=== PATIENT | male | born 1965 | race Caucasian/White ===

== ENCOUNTER 2025-03-02 16:36 | Inpatient (IN) | payer MEDICARE, MEDICAID, SELFPAY ==
[2025-03-02] VITALS (42 sets, daily range): BP systolic 92–218; BP diastolic 61–124; PULSE 49–135; RESP 9–28; TEMP 36.1–36.3; O2SAT 91–100; BMI 28.2
[2025-03-02] MEDS: ETOMIDATE INJ 2 MG/ML VIAL 10 ML 20 MG IV (16:49)
[2025-03-02] MEDS: NICARDIPINE/NS 20MG IVPB 20 MG/200 ML BAG 50 MG IV (16:50)
[2025-03-02] MEDS: ROCURONIUM INJ 10 MG/ML VIAL 10 ML 50 MG IV (16:51)
[2025-03-02] MEDS: MIDAZOLAM/NS 100 MG IVPB 100 MG/100 ML BAG IV (16:55)
[2025-03-02] MEDS: fentaNYL 2,500 MCG/250 ML BAG 2,500 MCG/250 ML BAG IV (16:55)
--- NOTE | 2025-03-02 16:55 | XR_ITS ---
Examination: CTA carotids with intravenous contrast CTA brain, head with intravenous contrast. 2-D sagittal, coronal reconstructions. 3-D reconstructions. Exam date and time: March 02, 2025, 1816 hours INDICATIONS: Stroke alert, patient found down unresponsive today CTDI: vol (mGy) 40.2 DLP: (mGycm) 541 Technique: Multiple CTA axial brain, head carotid images post intravenous contrast injection 75 cc, [id number]. 2-D sagittal, coronal reconstructions. 3-D reconstructions, 3-D post processing including vascular maximum intensity projection images. Low dose protocols were performed. One or more of the following dose reduction techniques were used; automated exposure control, adjustment of the mA and/or KV according to patient size, use of iterative reconstruction technique. Findings: Enhancing posterior right thyroid lobe nodule 17 mm Tracheal tube projects above the nika No significant, carotid carotid bifurcation or internal carotid artery stenoses Dominant left vertebral artery in the neck with no critical stenoses Intracranial vertebral arteries basilar artery posterior cerebral branches fill with no large vessel occlusions Juxtasellar internal carotid arteries, M1 segments middle cerebral arteries middle cerebral artery trifurcation vessels and anterior cerebral arteries fill with no large vessel occlusions IMPRESSION: No significant neck arterial stenoses No cerebral large vessel arterial occlusions or thrombus
--- NOTE | 2025-03-02 16:55 | XR_ITS ---
Examination: CT brain head without contrast. 2-D sagittal coronal reconstructions Date and time of exam: March 02, 2025, 1814 hours INDICATIONS: Stroke alert, patient found down unresponsive today CTDI: vol (mGy): 54.6 DLP: (mGycm): 1151 Technique: Multiple CT axial sections of the brain have been obtained, 5 mm slice thickness. Contrast has not been administered. 2-D sagittal, coronal reconstructions have been obtained Low dose protocols were performed. One or more of the following dose reduction techniques were used; automated exposure control, adjustment of the mA and/or KV according to patient size, use of iterative reconstruction technique. Findings: No significant ventricular enlargement. 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 No mass effect or midline shift Basal cisterns are not remarkable. Fourth ventricle is midline. Cranial vault intact. Significant ethmoid chronic sinusitis Impression: Negative for acute hemorrhage, mass effect or midline shift
--- NOTE | 2025-03-02 16:55 | PC.NURSE ---
UNABLE TO OBTAIN NIHSS AT THIS TIME, PT INTUBATED.
--- NOTE | 2025-03-02 16:55 | EDNOTE_ITS ---
Altered Mental Status RME/HPI General Chief Complaint: Altered Mental Status Stated Complaint: AMS Time Seen by Provider: 03/02/25 16:47 Arrival date/time: 03/02/25 16:36 RME / HPI RME / HPI narrative: 59 year old male presents to the ED BIBA from home for evaluation of altered mental status. Per medics, the patient was found patient unresponsive in his trailer. Downtime unknown. Medics state on scene patient was a GCS of 3 with very shallow respirations and had an NPA placed. Medics state there was very little to no response. Blood pressure 202/129 and sinus tachycardia on telemetry. Patient bagged with BVM. Past medical history unknown. Per EMR review, in 2020 the patient reported history of CHF, hypertension, diabetes, COPD. Related Data Previous Rx's ?Medication ?Instructions ?Recorded aspirin 81 mg tablet 81 mg PO QDAY 1 month #30 ta bs 03/04/25 atorvastatin 40 mg tablet (Lipitor) 40 mg PO QDAY 1 mo nt #30 tabs 03/04/25 blood pressure monitor (Blood #1 ea 03/04/25 Pressure Kit) losartan 25 mg tablet 25 mg PO QDAY 1 month #30 ta bs 03/04/25 Allergies Allergy/AdvReac Type Severity Reaction Status Date / Time bee venom protein (honey bee) Allergy Severe Rash Verified 03/02/25 16:42 Review of Systems Review of Systems ROS Unobtainable: unobtainable due to mental status Past Medical History Past Medical History CARDIAC: Positive Cardiac Disorders, Congestive Heart Failure and Hypertension RESPIRATORY: Positive Chronic Obstructive Pulmonary Disease (COPD), Emphysema and CPAP Dependent ENDOCRINE: Positive Endocrine Disorders and Diabetes Mellitus Type 2 PSYCHO/SOCIAL: Positive Recreational Drug Use Social History SMOKING STATUS: Current every day smoker SUBSTANCE USE: marijuana (QD) ED Exam Narrative Physical exam: GEN. APPEARANCE: Patient arrived unresponsive, GCS of 3 and actively being bagged. VITALS: Hypertensive 220/124, 99% with BVM. HEENT: Normocephalic, atraumatic. Pupils are 4mm bilaterally and deviated upward, reactive to light. NECK: Supple, no JVD. CHEST: No deformity and no crepitus. CARDIOVASCULAR: Heart regular,? tachycardic, rate 109 on telemetry. LUNGS: Fair breath sounds with bagging. ABDOMEN: Soft, flat. EXTREMITIES: Flaccid. No edema. Does not move any extremities. No obvious trauma. SKIN: Warm and dry, no rashes noted. NEURO: GCS is 3. Course Course Course Narrative: 1634: Patient arrived to ED, actively being bagged, GCS of 3. 165: Patient intubated, see procedure note. Patient sedated with Etomidate and Rocuronium. Ordered Versed and Fentanyl drip. 1654: Stroke alert activated. 1730: Notified by RN the patient is not adequately sedated. The Versed and Fentanyl were discontinued and sedation switched to Propofol. I also gave a 5ml IV push of Propofol with improvement. 1800: Patient signed out to Dr. Everett pending labs, imaging, and final disposition. Quality Measures Suspected type of Stroke: Unknown at this time Tenecteplase given: Reason(s) TPA not given: Unable to determine eligibility not given stroke Orders Category Date Time Status Bedside Blood Glucose NOW Care 03/02/25 16:55 Completed Hiv Prevention Specialist NOW Care 03/02/25 16:55 Completed Continuous Pulse Oximetry NOW Care 03/02/25 16:55 Completed EKG (ED ONLY) *Do not use* NOW Care 03/02/25 16:55 Completed Emergency Titration Protocol Stat Care 03/02/25 17:48 Ordered Emergency Titration Protocol Stat Care 03/02/25 17:50 Ordered In and Out Catheter NEEDED Care 03/02/25 16:55 Completed Insert IV NOW Care 03/02/25 16:55 Completed Intubation NOW Care 03/02/25 17:39 Completed NIH Stroke Scale now Care 03/02/25 16:55 Completed NPO NOW Care 03/02/25 16:55 Completed Nurse Swallow Screen x1 Care 03/02/25 16:55 Completed Consult to Neurology / Tele-Neurology Routine Cons 03/02/25 16:[address] angio stroke protocol Stat Exams 03/02/25 16:[address] stroke protocol Stat Exams 03/02/25 16:55 Completed EKG (ED Only) Stat Exams 03/02/25 16:55 Ordered XR chest 1V post procedure Stat Exams 03/02/25 16:55 Completed Arterial Blood Gas Stat Lab 03/02/25 17:12 Completed B-Type Natriuretic Peptide Stat Lab 03/02/25 16:50 Completed CBC Stat Lab 03/02/25 16:50 Completed Comprehensive Metabolic Panel Stat Lab 03/02/25 16:50 Completed Drug Screen,Urine Stat Lab 03/02/25 18:49 Completed Magnesium Stat Lab 03/02/25 16:50 Completed Partial Thromboplastin Time Stat Lab 03/02/25 16:50 Completed Prothrombin Time with INR Stat Lab 03/02/25 16:50 Completed Troponin I Stat Lab 03/02/25 16:50 Completed Urinalysis, C/S if Indicated Stat Lab 03/02/25 18:49 Completed Etomidate Inj [Amidate Inj] Med 03/02/25 16:40 Discontinued 20 mg IV X1 ONE Midazolam Inj [Versed Inj] Med 03/02/25 17:10 Discontinued 5 mg IVP X1 ONE Midazolam/Ns 100 mg Ivpb [Versed Pf Inj in Ns Premix] Med 03/02/25 16:40 Discontinued 100 mg in 100 ml IV 1 mg/hr Nicardipine/Ns 20Mg Ivpb [Cardene Ivpb] Med 03/02/25 16:39 Discontinued 20 mg in 200 ml IV 5 mg/hr Propofol 1,000 mg Ivpb [Diprivan Ivpb] Med 03/02/25 17:25 Discontinued 1,000 mg in 100 ml IV 5 mcg/kg/min Rocuronium Inj [Zemuron Inj] Med 03/02/25 16:40 Discontinued 50 mg IV X1 ONE Sodium Chloride 0.9% 1000 ml [Ns] 1,000 ml Med 03/02/25 17:45 Discontinued IV 999 mls/hr fentaNYL 2,500 MCG/250 ML BAG [Sublimaze Inj 2,500 MCG/ Med 03/02/25 16:41 Discontinued 250 ML BAG] 2,500 mcg in 250 ml IV 25 mcg/hr Oxygen Delivery NOW RT 03/02/25 16:55 Completed Vital Signs Vital signs: Vital Signs Pulse Rate 106 H 03/02/25 16:40 Respiratory Rate 17 03/02/25 16:40 Blood Pressure 218/124 H 03/02/25 16:40 Pulse Oximetry (%) 98 03/02/25 16:40 Oxygen Delivery Method Ambu-Bag 03/02/25 16:40 PROCEDURES: Intubation Time out performed: Yes sedative: Etomidate Mg Given: 20 paralytic: Rocuronium Mg Given: 50 Laryngoscope: Haider ET Tube Size: 7.5 ET Tube Uncuffed: No Tube Secured Depth (cm): 26 Tube Secured Location: teeth Tube Placement Confirmation: visualized tube passing through cords, equal breath sounds bilaterally, no breath sounds over epigastrium and confirmation by capnometry Patient Tolerated Procedure: well and no complications Intubation Complications: none Altered Mental Status MDM Narrative [facility] Narrative:: Tere Hui am scribing for and in the presence of Dr. Mcdaniel. Patient data External records reviewed:: [facility] previous records and EMS form Clinical information provided by:: EMS Social determinants that could affect healthcare access:: none Patient has the following chronic illnesses:: Per EMR review, in 2020 the patient reported history of CHF, hypertension, diabetes, COPD. How is presenting disease/condition affected by chronic disease/condition?: exacerbated by Evaluation data The following diagnostics were reviewed and interpreted by me:: lab results, radiology exam(s) and EKG tracing(s) Lab and/or radiology exams considered but not ordered:: None Interpretation Summary: Ordering Physician: Rachel Mcdaniel MD Date of Service: 03/02/25 Procedure(s): XR chest 1V post procedure Accession Number(s): [id number] cc: José Miguel Tolliver MD; Rachel Mcdaniel MD~ EXAMINATION: AP chest single view TECHNIQUE: AP portable supine chest single view INDICATIONS: Hypoxic respiratory failure post intubation today, stroke alert FINDINGS: Endotracheal tube tip 6.6 cm above nika Normal heart size Mild vascular congestion. No aspiration pneumonia Orogastric tube sidehole is at the GE junction IMPRESSION: Advance the orogastric tube 4 cm Dictated By: José Miguel Tolliver MD Signed By: <Electronically signed by José Miguel Tolliver MD in OV> 03/02/25 8994 Medications / Prescriptions Medications or Prescriptions considered but not ordered:: None Medication administrations:: Medication Administration History Discontinued Medications Acetaminophen (Acetaminophen 325 Mg Tablet) 1,000 mg NG Q6H PRN PRN Reason: Fever >101.5 Stop: 04/01/25 21:02 Acetaminophen (Acetaminophen 325 Mg Tablet) 1,000 mg NG Q6H PRN PRN Reason: fever >99.9 Stop: 04/01/25 21:02 Aspirin (Aspirin 81 Mg Chew) 81 mg PO QDAY [facility] Stop: 04/02/25 09:44 Last Admin: 03/04/25 09:17 Dose: 81 mg Documented By: Admin: 03/03/25 10:39 Dose: 81 mg Documented By: FREDERICK Atorvastatin Calcium (Atorvastatin Calcium 20 Mg Tablet) 40 mg PO HS GARCIA Stop: 04/02/25 20:59 Last Admin: 03/03/25 20:04 Dose: 40 mg Documented By: SANDRA Calcium Gluconate (Calcium Gluconate 10% Inj 1 Gm/10 Ml Vial) 1 gm IV X1 ONE Stop: 03/02/25 22:16 Last Admin: 03/02/25 22:57 Dose: 1 gm Documented By: EMILY Enoxaparin Sodium (Enoxaparin Sod Inj 40 Mg/0.4 Ml Syringe) 40 mg SC QPM GARCIA Stop: 03/17/25 20:59 Last Admin: 03/03/25 20:04 Dose: 40 mg Documented By: SANDRA Etomidate (Etomidate Inj 2 Mg/Ml Vial 10 Ml) 20 mg IV X1 ONE Stop: 03/02/25 16:41 Last Admin: 03/02/25 16:49 Dose: 20 mg Documented By: ALCIRA Famotidine (Famotidine Inj 10 Mg/Ml Vial 2 Ml) 20 mg IVP Q12HR GARCIA Stop: 04/02/25 08:59 Last Admin: 03/04/25 09:17 Dose: 20 mg Documented By: Admin: 03/03/25 20:04 Dose: 20 mg Documented By: Admin: 03/03/25 09:25 Dose: 20 mg Documented By: FREDERICK Hydralazine HCl (Hydralazine Inj 20 Mg/Ml Vial) 5 mg IVP X1 ONE Stop: 03/03/25 16:59 Last Admin: 03/03/25 17:06 Dose: 5 mg Documented By: FREDERICK Hydralazine HCl (Hydralazine Inj 20 Mg/Ml Vial) 10 mg IVP Q4HR PRN PRN Reason: SBP >180 Stop: 04/02/25 18:04 Nicardipine/Sodium Chloride (Cardene Ivpb) 20 mg in 200 mls @ 50 mls/hr IV .Q4H PRN; Protocol PRN Reason: Per Protocol Stop: 04/01/25 16:38 Last Titration: 03/02/25 17:45 Dose: 0 mg/hr, 0 mls/hr Documented By: Titration: 03/02/25 17:30 Dose: 3 mg/hr, 30 mls/hr Documented By: Titration: 03/02/25 17:25 Dose: 3 mg/hr, 30 mls/hr Documented By: Titration: 03/02/25 17:20 Dose: 15 mg/hr, 150 mls/hr Documented By: Titration: 03/02/25 17:15 Dose: 12.5 mg/hr, 125 mls/hr Documented By: Titration: 03/02/25 17:10 Dose: 10 mg/hr, 100 mls/hr Documented By: Titration: 03/02/25 17:05 Dose: 7.5 mg/hr, 75 mls/hr Documented By: Admin: 03/02/25 16:50 Dose: 5 mg/hr, 50 mls/hr Documented By: VG Midazolam HCl (Versed Pf Inj In Ns Premix) 100 mg in 100 mls @ 1 mls/hr IV .Q24H PRN; Protocol PRN Reason: PER PROTOCOL Stop: 03/07/25 16:39 Last Titration: 03/02/25 17:40 Dose: 0 mg/hr, 0 mls/hr Documented By: Admin: 03/02/25 16:55 Dose: 1 mg/hr, 1 mls/hr Documented By: VG Co-signed By: ARASH Fentanyl Citrate (Sublimaze Inj 2,500 Mcg/250 Ml Bag) 2,500 mcg in 250 mls @ 2.5 mls/hr IV .Q24H PRN; Protocol PRN Reason: PER PROTOCOL Stop: 03/07/25 16:40 Last Titration: 03/02/25 20:15 Dose: 125 mcg/hr, 12.5 mls/hr Documented By: [email or web address] Titration: 03/02/25 20:00 Dose: 125 mcg/hr, 12.5 mls/hr Documented By: [email or web address] Titration: 03/02/25 19:45 Dose: 125 mcg/hr, 12.5 mls/hr Documented By: [email or web address] Titration: 03/02/25 19:30 Dose: 125 mcg/hr, 12.5 mls/hr Documented By: [email or web address] Titration: 03/02/25 19:05 Dose: 125 mcg/hr, 12.5 mls/hr Documented By: Titration: 03/02/25 18:35 Dose: 75 mcg/hr, 7.5 mls/hr Documented By: Titration: 03/02/25 17:45 Dose: 125 mcg/hr, 12.5 mls/hr Documented By: Titration: 03/02/25 17:25 Dose: 75 mcg/hr, 7.5 mls/hr Documented By: Admin: 03/02/25 16:55 Dose: 25 mcg/hr, 2.5 mls/hr Documented By: VG Co-signed By: ARASH Propofol (Diprivan Ivpb) 1,000 mg in 100 mls @ 2.835 mls/hr IV .Q24H PRN; Protocol PRN Reason: PER PROTOCOL Stop: 04/01/25 17:24 Last Titration: 03/02/25 20:15 Dose: 35 mcg/kg/min, 19.845 mls/hr Documented By: [email or web address] Titration: 03/02/25 20:00 Dose: 35 mcg/kg/min, 19.845 mls/hr Documented By: [email or web address] Titration: 03/02/25 19:45 Dose: 35 mcg/kg/min, 19.845 mls/hr Documented By: [email or web address] Titration: 03/02/25 19:30 Dose: 35 mcg/kg/min, 19.845 mls/hr Documented By: [email or web address] Titration: 03/02/25 19:15 Dose: 35 mcg/kg/min, 19.845 mls/hr Documented By: Titration: 03/02/25 19:00 Dose: 40 mcg/kg/min, 22.68 mls/hr Documented By: Titration: 03/02/25 18:25 Dose: 35 mcg/kg/min, 19.845 mls/hr Documented By: Titration: 03/02/25 18:00 Dose: 40 mcg/kg/min, 22.68 mls/hr Documented By: Titration: 03/02/25 17:55 Dose: 35 mcg/kg/min, 19.845 mls/hr Documented By: Titration: 03/02/25 17:51 Dose: 30 mcg/kg/min, 17.01 mls/hr Documented By: Titration: 03/02/25 17:50 Dose: 25 mcg/kg/min, 14.175 mls/hr Documented By: Titration: 03/02/25 17:45 Dose: 15 mcg/kg/min, 8.505 mls/hr Documented By: Titration: 03/02/25 17:40 Dose: 10 mcg/kg/min, 5.67 mls/hr Documented By: Admin: 03/02/25 17:35 Dose: 5 mcg/kg/min, 2.835 mls/hr Documented By: VG Co-signed By: ADRIAN Sodium Chloride (Ns) 1,000 mls @ 999 mls/hr IV .Q1H1M ONE Stop: 03/02/25 18:45 Last Infusion: 03/02/25 18:45 Dose: Infused Documented By: Admin: 03/02/25 17:45 Dose: 999 mls/hr Documented By: VG Propofol (Diprivan Ivpb) 1,000 mg in 100 mls @ 2.835 mls/hr IV .Q24H PRN; Protocol PRN Reason: PER PROTOCOL Stop: 04/01/25 17:24 Last Titration: 03/03/25 11:14 Dose: 0 mcg/kg/min, 0 mls/hr Documented By: Titration: 03/03/25 11:00 Dose: 5 mcg/kg/min, 2.835 mls/hr Documented By: Titration: 03/03/25 10:57 Dose: 5 mcg/kg/min, 2.835 mls/hr Documented By: Titration: 03/03/25 10:47 Dose: 10 mcg/kg/min, 5.67 mls/hr Documented By: Titration: 03/03/25 10:12 Dose: 15 mcg/kg/min, 8.505 mls/hr Documented By: Titration: 03/03/25 10:00 Dose: 20 mcg/kg/min, 11.34 mls/hr Documented By: Titration: 03/03/25 09:36 Dose: 20 mcg/kg/min, 11.34 mls/hr Documented By: Titration: 03/03/25 09:00 Dose: 25 mcg/kg/min, 14.175 mls/hr Documented By: Titration: 03/03/25 08:00 Dose: 25 mcg/kg/min, 14.175 mls/hr Documented By: Titration: 03/03/25 07:00 Dose: 25 mcg/kg/min, 14.175 mls/hr Documented By: Titration: 03/03/25 06:40 Dose: 25 mcg/kg/min, 14.175 mls/hr Documented By: Admin: 03/03/25 06:03 Dose: 20 mcg/kg/min, 11.34 mls/hr Documented By: BB Co-signed By: AD Titration: 03/03/25 06:03 Dose: Infused Documented By: BB Co-signed By: AD Titration: 03/03/25 05:00 Dose: 20 mcg/kg/min, 11.34 mls/hr Documented By: BB Co-signed By: AD Titration: 03/03/25 04:00 Dose: 20 mcg/kg/min, 11.34 mls/hr Documented By: BB Co-signed By: AD Titration: 03/03/25 03:00 Dose: 20 mcg/kg/min, 11.34 mls/hr Documented By: BB Co-signed By: AD Titration: 03/03/25 02:00 Dose: 20 mcg/kg/min, 11.34 mls/hr Documented By: Titration: 03/03/25 01:00 Dose: 20 mcg/kg/min, 11.34 mls/hr Documented By: Titration: 03/03/25 00:30 Dose: 20 mcg/kg/min, 11.34 mls/hr Documented By: Titration: 03/03/25 00:00 Dose: 25 mcg/kg/min, 14.175 mls/hr Documented By: Titration: 03/02/25 23:00 Dose: 25 mcg/kg/min, 14.175 mls/hr Documented By: Titration: 03/02/25 22:00 Dose: 25 mcg/kg/min, 14.175 mls/hr Documented By: Admin: 03/02/25 21:20 Dose: 30 mcg/kg/min, 17.01 mls/hr Documented By: GALA Fentanyl Citrate (Sublimaze Inj 2,500 Mcg/250 Ml Bag) 2,500 mcg in 250 mls @ 2. 5 mls/hr IV .Q24H PRN; Protocol PRN Reason: PER PROTOCOL Stop: 03/07/25 16:40 Last Titration: 03/03/25 11:17 Dose: 0 mcg/hr, 0 mls/hr Documented By: Titration: 03/03/25 11:00 Dose: 25 mcg/hr, 2.5 mls/hr Documented By: Titration: 03/03/25 10:47 Dose: 25 mcg/hr, 2.5 mls/hr Documented By: Titration: 03/03/25 10:12 Dose: 75 mcg/hr, 7.5 mls/hr Documented By: Titration: 03/03/25 10:00 Dose: 125 mcg/hr, 12.5 mls/hr Documented By: Titration: 03/03/25 09:33 Dose: 125 mcg/hr, 12.5 mls/hr Documented By: Titration: 03/03/25 09:00 Dose: 175 mcg/hr, 17.5 mls/hr Documented By: Titration: 03/03/25 08:00 Dose: 175 mcg/hr, 17.5 mls/hr Documented By: Titration: 03/03/25 07:00 Dose: 175 mcg/hr, 17.5 mls/hr Documented By: Titration: 03/03/25 06:40 Dose: 175 mcg/hr, 17.5 mls/hr Documented By: Titration: 03/03/25 02:17 Dose: 125 mcg/hr, 12.5 mls/hr Documented By: Titration: 03/03/25 02:00 Dose: 75 mcg/hr, 7.5 mls/hr Documented By: Titration: 03/03/25 01:00 Dose: 75 mcg/hr, 7.5 mls/hr Documented By: Titration: 03/03/25 00:30 Dose: 75 mcg/hr, 7.5 mls/hr Documented By: Titration: 03/03/25 00:00 Dose: 125 mcg/hr, 12.5 mls/hr Documented By: Titration: 03/02/25 23:00 Dose: 125 mcg/hr, 12.5 mls/hr Documented By: Titration: 03/02/25 22:00 Dose: 125 mcg/hr, 12.5 mls/hr Documented By: Titration: 03/02/25 21:50 Dose: 125 mcg/hr, 12.5 mls/hr Documented By: Admin: 03/02/25 21:20 Dose: 75 mcg/hr, 7.5 mls/hr Documented By: GALA Co-signed By: RICHY Sodium Chloride (Ns) 500 mls @ 999 mls/hr IV .Q31M ONE Stop: 03/02/25 22:49 Last Admin: 03/02/25 22:56 Dose: 999 mls/hr Documented By: EMILY Magnesium Sulfate (Magnesium Sulfate Ivpb) 4 gm in 50 mls @ 12.5 mls/hr IV X1 ONE Stop: 03/03/25 12:43 Last Admin: 03/03/25 09:25 Dose: 12.5 mls/hr Documented By: FREDERICK Ketoconazole (Ketoconazole Cr 2% 15 Gm Tube) 0 gm TOP BID GARCIA Stop: 04/02/25 14:44 Last Admin: 03/04/25 09:17 Dose: 15 gram Documented By: Admin: 03/03/25 20:07 Dose: 15 gram Documented By: Admin: 03/03/25 15:51 Dose: 15 gram Documented By: FREDERICK Lactulose (Lactulose Syrup 20 Gm/30 Ml Udc) 20 gm NG X1 ONE; Protocol Stop: 03/02/25 22:18 Last Admin: 03/02/25 22:57 Dose: 20 gm Documented By: EMILY Lisinopril (Lisinopril 2.5 Mg Tablet) 5 mg PO QDAY [facility] Stop: 04/03/25 11:59 Last Admin: 03/04/25 12:33 Dose: 5 mg Documented By: NILSA Midazolam HCl (Midazolam Inj 1 Mg/Ml Vial 2 Ml) 5 mg IVP X1 ONE Stop: 03/02/25 17:11 Last Admin: 03/02/25 17:15 Dose: 5 mg Documented By: ALCIRA Midazolam HCl (Midazolam Inj 1 Mg/Ml Vial 2 Ml) 2 mg IVP X1 ONE Stop: 03/03/25 06:57 Last Admin: 03/03/25 07:10 Dose: 2 mg Documented By: FREDERICK Midazolam HCl (Midazolam Inj 1 Mg/Ml Vial 2 Ml) 2 mg IVP X1 PRN PRN Reason: FOr MRI if agitated Stop: 03/08/25 16:57 Nicotine (Nicotine Patch 21 Mg/24 Hr Patch.Td24) 21 mg TOP QDAY GARCIA Stop: 04/03/25 08:59 Last Admin: 03/04/25 09:17 Dose: 21 mg Documented By: NILSA Ondansetron HCl (Ondansetron Inj 2 Mg/Ml Inj 2 Ml) 4 mg IVP Q6H PRN; Protocol PRN Reason: NAUSEA OR VOMITING Stop: 04/01/25 21:02 Rocuronium [place] (Rocuronium Inj 10 Mg/Ml Vial 10 Ml) 50 mg IV X1 ONE Stop: 03/02/25 16:41 Last Admin: 03/02/25 16:51 Dose: 50 mg Documented By: ALCIRA Co-signed By: TM See above Consultations Consultation(s) initiated? (list below): No Diagnosis Most likely diagnosis given after review of the tests above:: Respiratory failure Altered mental status Admission Indicated Admission indicated?: not indicated Explain why admission is indicated or not indicated:: Patient signed out to Dr. Everett pending labs, imaging, and final disposition. Admission Request Was there a request for admission?: No Disposition Plan Disposition Plan: other (specify) (Signed out pending final disposition ) Discharge Plan Plan Patient Disposition: Admit Acute Care w/in Hospital Patient condition on transfer: Stable Problem List Clinical Impression: Altered mental status
[2025-03-02 17:10] LABS: Basophils # (Auto) 0.1 Thou/mm3 (0.0-0.2); Basophils % (Auto) 1 % (0-2.5); Eosinophils # (Auto) 0.1 Thou/mm3 (0.0-0.5); Eosinophils % (Auto) 1 % (0-10); Hematocrit 53.2 % (41.0-53.0); Hemoglobin 18.7 g/dL (13.5-16.0); Immature Granulocytes Auto 0.05 Thou/mm3 (0.00-0.00); Lymphocytes # (Auto) 3.6 Thou/mm3 (1.0-4.8); Lymphocytes % (Auto) 24 % (10-50); Mean Corpuscular HGB Conc 35.2 g/dl (31.0-37.0); Mean Corpuscular Hemoglobin 31.3 pg (25.0-35.0); Mean Corpuscular Volume 89 fL (80-100); Monocytes # (Auto) 1.0 Thou/mm3 (0.0-0.8); Monocytes % (Auto) 7 % (0-12); Neutrophils # (Auto) 9.9 Thou/mm3 (1.8-7.7); Neutrophils % (Auto) 68 % (37-80); Nucleated Red Blood Cell # 0.00 Thou/mm3 (0.00-0.00); Nucleated Red Blood Cell % 0 /100 WBC (0); Platelet Count 360 Thou/mm3 (140-440); RDW Standard Deviation 41.4 fL (35.1-43.9); Red Blood Count 5.98 Miln/mm3 (4.50-5.90); White Blood Count 14.6 Thou/mm3 (3.8-10.6)
[2025-03-02 17:15] LABS: Base Excess -2 (-3-3); HCO3 27 mEq/L (20-26); Inspired Oxygen, FIO2 21 %; O2 Saturation 100 % (91-98); PCO2 57 mmHg (32.0-48.0); PO2 418 mmHg (83-108); pH, Arterial 7.28 (7.35-7.45)
[2025-03-02] MEDS: MIDAZOLAM INJ 1 MG/ML VIAL 2 ML 5 MG IVP (17:15)
[2025-03-02 17:27] LABS: INR 1.1 (0.9-1.3); Partial Thromboplastin Time 29.1 Seconds (22.0-36.0); Prothrombin Time 11.2 Seconds (9.0-12.2)
[2025-03-02] MEDS: PROPOFOL 1,000 MG IVPB 1,000 MG/100 ML VIAL 2.835 MG IV (17:35)
[2025-03-02 17:39] LABS: Alanine Aminotransferase 11 U/L (10-49); Albumin, Serum 5.3 gm/dL (3.5-5.0); Albumin/Globulin Ratio 2.1 (1.2-2.2); Alkaline Phosphatase 112 U/L (46-116); Anion Gap 11 (7-16); Aspartate Amino Transferase 19 U/L (0-34); BUN/Creatinine Ratio 11 Ratio (12-20); Bilirubin,Total 0.7 mg/dL (0.3-1.2); Blood Urea Nitrogen 12 mg/dL (9-23); Calcium 9.8 mg/dL (8.3-10.6); Calcium (Corrected) 9.8 mg/dL (8.5-10.1); Carbon Dioxide 24.1 mMol/L (20.0-31.0); Chloride 107 mMol/L (98-107); Creatinine (Component) 1.1 mg/dL (0.6-1.3); Estimated Creatinine Clearance 88.4 mL/min (>60); Globulin 2.5 gm/dL (2.3-3.5); Glucose 126 mg/dL (74-106); Magnesium 1.8 mg/dL (1.6-2.6); Osmolality,Calculated 284 (275-295); Potassium 4.3 mMol/L (3.4-5.1); Sodium 142 mMol/L (136-145); Total Protein 7.8 gm/dL (5.7-8.2); Troponin I < 0.020 ng/mL (0.0-0.045); eGFR > 60 See Note
[2025-03-02] MEDS: SODIUM CHLORIDE 0.9% 1000 ML 1,000 ML 999 ML IV (17:45)
--- NOTE | 2025-03-02 17:45 | PC.NURSE ---
BP GETTING SOFT, BP AT 126/77. PROVIDER NOTIFIED. PER DR. ALEXANDRE DISCONTINUE NICARDIPINE AND GIVE 1L NS BOLUS. ORDERS RECEIVED AND INITIATED.
[2025-03-02 17:58] LABS: B-Type Natriuretic Peptide 25 pg/mL (0-100)
--- NOTE | 2025-03-02 18:02 | PC.NURSE ---
PT TAKEN TO CT.
--- NOTE | 2025-03-02 18:17 | PD.TNEURO ---
Tele Neuro Consultation Consultation Date 03/02/25 Most Recent Vital Signs Last Vital Signs Pulse 135 H 03/02/25 17:10 Resp 17 03/02/25 16:40 BP 200/118 H 03/02/25 17:10 Pulse Ox 97 03/02/25 17:10 O2 Del Method Ambu-Bag 03/02/25 16:40 FiO2 100 03/02/25 17:10 Laboratory-Coagulation Panel PT 11.2 Seconds (9.0-12.2) 03/02/25 16:50 INR 1.1 (0.9-1.3) 03/02/25 16:50 APTT 29.1 Seconds (22.0-36.0) 03/02/25 16:50 Consultation Narrative [facility] Tele[facility]urology Consult Services Patient Name:???Alonzo Olmstead Date of :???1965 Identification Number:??? Date of Service:???03/02/2025 16:55:46 Diagnosis:?G93.49 - Encephalopathy Multifactorial Impression: ?Patient is a 59 year old man, BIBEMS after being found down and unresponsive, unknown LKN, unknown down time. After arrival to the ED patient was unresponsive, not following commands, was hypertensive and was intubated prior to my assessment for airway protection. Unknown medical history and unknown medications. ? ?Not a candidate for IV thrombolytics as no reported LKN within past 4.5 hrs. ? 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 ? ? Our recommendations are outlined below. Recommendations: ? Stroke/Telemetry Floor ? Neuro Checks (Q1) ? Bedside Swallow Eval ? DVT Prophylaxis ? IV Fluids, Normal Saline ? Head of Bed 30 Degrees ? Euglycemia and Avoid Hyperthermia (PRN Acetaminophen) ? Initiate or continue Aspirin 325 MG daily ? Antihypertensives PRN if Blood pressure is greater than 220/120 or there is a concern for End organ damage/contraindications for permissive HTN. If blood pressure is greater than 220/120 give labetalol PO or IV or Vasotec IV with a goal of 15% reduction in BP during the first 24 hours. ?CTA head and neck pending ?MRI head without contrast Sign Out: ? Discussed with Emergency Department Provider Advanced Imaging:Advanced imaging has been ordered. Results pending. Metrics: Last Known Well: Unknown Dispatch Time: 03/02/2025 16:55:46 Arrival Time: 03/02/2025 16:36:00 Initial Response Time: 03/02/2025 16:57:01Symptoms: unresponsiveness. Initial patient interaction: 03/02/2025 16:57:21 NIHSS Assessment Completed: 03/02/2025 17:26:56Patient is not a candidate for Thrombolytic. Thrombolytic Medical Decision: 03/02/2025 17:27:00Patient was not deemed candidate for Thrombolytic because of following reasons: LKW outside 4.[address] Head: I personally reviewed all the CT images that were available to me and it showed: no acute hemorrhage Primary Provider Notified of Diagnostic Impression and Management Plan on: 03/02/2025 18:16:40 History of Present Illness:Patient is a 59 year old Male. Patient was brought by EMS for symptoms of unresponsiveness. Patient is a 59 year old man, BIBEMS after being found down and unresponsive, unknown LKN, unknown down time. After arrival to the ED patient was unresponsive, not following commands, was hypertensive and was intubated prior to my assessment for airway protection. Unknown medical history and unknown medications. ? Medications: Anticoagulant use:??Unknown Antiplatelet use:?Unknown Reviewed EMR for current medications Allergies:? Allergies Unable To Obtain Due To:?Patient Is Obtunded/ Comatose Social History: Unable To Obtain Due To Patient Status :?Patient Is Obtunded/ Comatose Family History: Family History Cannot Be Obtained Because:Patient Is Obtunded/ Comatose ROS :?ROS Cannot Be Obtained Because:? Patient Is Obtunded/ Comatose Past Surgical History: Past Surgical History Cannot Be Obtained Because: Patient Is Obtunded/ Comatose There Is No Surgical History Contributory To Today?s Visit NIHSS may not be reliable due to: Patient was intubated and paralyzed Examination: BP(235/146),?Pulse(116),?Blood Glucose(145) 1A: Level of Consciousness - Postures or Unresponsive?+ 3 1B: Ask Month and Age - Aphasic?+ 2 1C: Blink Eyes & Squeeze Hands - Performs 0 Tasks?+ 2 2: Test Horizontal Extraocular Movements - Normal?+ 0 3: Test Visual Salas - No Visual Loss?+ 0 4: Test Facial Palsy (Use Grimace if Obtunded) - Normal symmetry?+ 0 5A: Test Left Arm Motor Drift - No Effort Against [place]?+ 3 5B: Test Right Arm Motor Drift - No Effort Against [place]?+ 3 6A: Test Left Leg Motor Drift - No Movement?+ 4 6B: Test Right Leg Motor Drift - No Movement?+ 4 7: Test Limb Ataxia (FNF/Heel-Pollock) - No Ataxia?+ 0 8: Test Sensation - Normal; No sensory loss?+ 0 9: Test Language/Aphasia - Coma/Unresponsive?+ 3 10: Test Dysarthria - Intubated/Unable to Test?+ 0 11: Test Extinction/Inattention - No abnormality?+ 0 NIHSS Score:?24 NIHSS Free Text :?non purposeful irregular twitching of arms Pre-Morbid Modified Shelby Scale: Unable to assess Spoke with :?Dr Everett This consult was conducted in real time using interactive audio and video technology. Patient was informed of the technology being used for this visit and agreed to proceed. Patient located in hospital and provider located at home/office setting. Patient is being evaluated for possible acute neurologic impairment and high probability of imminent or life-threatening deterioration. I spent total of 30 minutes providing care to this patient, including time for face to face visit via telemedicine, review of medical records, imaging studies and discussion of findings with providers, the patient and/or family. Dr Brian Tucker [facility] For Inpatient follow-up with [facility] physician please call [facility] at . As we are not an outpatient service for any post hospital discharge needs please contact the hospital for assistance. If you have any questions for the [facility] physicians or need to reconsult for clinical or diagnostic changes please contact us via [facility] at . Non-radiologist review of imaging performed to assist with emergent clinical decision-making. Remote physician workstations do not possess the same resolution, calibration, or diagnostic capabilities as hospital-based radiology reading stations, and formal radiologist read is necessary. Signature :?Brian Tucker ?
--- NOTE | 2025-03-02 18:20 | EDNOTE_ITS ---
Emergency Room Addendum <Nikki Ch - Last Filed: 03/02/25 18:54> Addendum Narrative: 1800: Care assumed from Dr. Mcdaniel, the previous shift emergency physician. Past medical, surgical, social and family history reviewed. Vitals and home medications reviewed. Results and treatment plan discussed. I will assume the care of the patient at this time and will follow the patient, pending work-up. Please refer to the emergency department record for history and examination from initial visit. RADIOLOGY RESULTS: [facility] Report Signed Patient: FARHAN FOSTER. Record#: [id number] Birthdate: 1965 Age/Sex: 59 / M Location: [facility] Attending Dr: Ordering Physician: Rachel Mcdaniel MD Date of Service: 03/02/25 Procedure(s): CT stroke protocol Accession Number(s): [id number] cc: José Miguel Tolliver MD; NO PRIMARY/FAMILY,PHYSICIAN; Rachel Mcdaniel MD~ Examination: CT brain head without contrast. 2-D sagittal coronal reconstructions Date and time of exam: March 02, 2025, 1814 hours INDICATIONS: Stroke alert, patient found down unresponsive today CTDI: vol (mGy): 54.6 DLP: (mGycm): 1151 Technique: Multiple CT axial sections of the brain have been obtained, 5 mm slice thickness. Contrast has not been administered. 2-D sagittal, coronal reconstructions have been obtained Low dose protocols were performed. One or more of the following dose reduction techniques were used; automated exposure control, adjustment of the mA and/or KV according to patient size, use of iterative reconstruction technique. Findings: No significant ventricular enlargement. 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 No mass effect or midline shift Basal cisterns are not remarkable. Fourth ventricle is midline. Cranial vault intact. Significant ethmoid chronic sinusitis Impression: Negative for acute hemorrhage, mass effect or midline shift Dictated By: José Miguel Tolliver MD Signed By: <Electronically signed by José Miguel Tolliver MD in OV> 03/02/25 1823 [facility] Report Signed Patient: FARHAN FOSTER. Record#: [id number] Birthdate: 1965 Age/Sex: 59 / M Location: [facility] Attending Dr: Ordering Physician: Rachel Mcdaniel MD Date of Service: 03/02/25 Procedure(s): CT angio stroke protocol Accession Number(s): [id number] cc: José Miguel Tolliver MD; NO PRIMARY/FAMILY,PHYSICIAN; Rachel Mcdaniel MD~ Examination: CTA carotids with intravenous contrast CTA brain, head with intravenous contrast. 2-D sagittal, coronal reconstructions. 3-D reconstructions. Exam date and time: March 02, 2025, 181 hours INDICATIONS: Stroke alert, patient found down unresponsive today CTDI: vol (mGy) 40.2 DLP: (mGycm) 541 Technique: Multiple CTA axial brain, head carotid images post intravenous contrast injection 75 cc, Isovue-370. 2-D sagittal, coronal reconstructions. 3-D reconstructions, 3-D post processing including vascular maximum intensity projection images. Low dose protocols were performed. One or more of the following dose reduction techniques were used; automated exposure control, adjustment of the mA and/or KV according to patient size, use of iterative reconstruction technique. Findings: Enhancing posterior right thyroid lobe nodule 17 mm Tracheal tube projects above the nika No significant, carotid carotid bifurcation or internal carotid artery stenoses Dominant left vertebral artery in the neck with no critical stenoses Intracranial vertebral arteries basilar artery posterior cerebral branches fill with no large vessel occlusions Juxtasellar internal carotid arteries, M1 segments middle cerebral arteries middle cerebral artery trifurcation vessels and anterior cerebral arteries fill with no large vessel occlusions IMPRESSION: No significant neck arterial stenoses No cerebral large vessel arterial occlusions or thrombus Dictated By: José Miguel Tolliver MD Signed By: <Electronically signed by José Miguel Tolliver MD in OV> 03/02/25 1844 <Alejandro Everett, DO - Last Filed: 03/02/25 19:52> Addendum Narrative: 1800: Care assumed from Dr. Mcdaniel, the previous shift emergency physician. Past medical, surgical, social and family history reviewed. Vitals and home medications reviewed. Results and treatment plan discussed. I will assume the care of the patient at this time and will follow the patient, pending work-up. Please refer to the emergency department record for history and examination from initial visit. RADIOLOGY RESULTS: [facility] Signed Patient: FARHAN FOSTER. Record#: [id number] Birthdate: 1965 Age/Sex: 59 / M Location: [facility] Attending Dr: Ordering Physician: Rachel Mcdaniel MD Date of Service: 03/02/25 Procedure(s): CT stroke protocol Accession Number(s): [id number] cc: José Miguel Tolliver MD; NO PRIMARY/FAMILY,PHYSICIAN; Rachel Mcdaniel MD~ Examination: CT brain head without contrast. 2-D sagittal coronal reconstructions Date and time of exam: March 02, 2025, 1814 hours INDICATIONS: Stroke alert, patient found down unresponsive today CTDI: vol (mGy): 54.6 DLP: (mGycm): 1151 Technique: Multiple CT axial sections of the brain have been obtained, 5 mm slice thickness. Contrast has not been administered. 2-D sagittal, coronal reconstructions have been obtained Low dose protocols were performed. One or more of the following dose reduction techniques were used; automated exposure control, adjustment of the mA and/or KV according to patient size, use of iterative reconstruction technique. Findings: No significant ventricular enlargement. 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 No mass effect or midline shift Basal cisterns are not remarkable. Fourth ventricle is midline. Cranial vault intact. Significant ethmoid chronic sinusitis Impression: Negative for acute hemorrhage, mass effect or midline shift Dictated By: José Miguel Tolliver MD Signed By: <Electronically signed by José Miguel Tolliver MD in OV> 03/02/25 1823 [facility] Report Signed Patient: FARHAN FOSTER. Record#: [id number] Birthdate: 1965 Age/Sex: 59 / M Location: [facility] Attending Dr: Ordering Physician: Rachel Mcdaniel MD Date of Service: 03/02/25 Procedure(s): CT angio stroke protocol Accession Number(s): [id number] cc: José Miguel Tolliver MD; NO PRIMARY/FAMILY,PHYSICIAN; Rachel Mcdaniel MD~ Examination: CTA carotids with intravenous contrast CTA brain, head with intravenous contrast. 2-D sagittal, coronal reconstructions. 3-D reconstructions. Exam date and time: March 02, 2025, 181 hours INDICATIONS: Stroke alert, patient found down unresponsive today CTDI: vol (mGy) 40.2 DLP: (mGycm) 541 Technique: Multiple CTA axial brain, head carotid images post intravenous contrast injection 75 cc, Isovue-370. 2-D sagittal, coronal reconstructions. 3-D reconstructions, 3-D post processing including vascular maximum intensity projection images. Low dose protocols were performed. One or more of the following dose reduction techniques were used; automated exposure control, adjustment of the mA and/or KV according to patient size, use of iterative reconstruction technique. Findings: Enhancing posterior right thyroid lobe nodule 17 mm Tracheal tube projects above the nika No significant, carotid carotid bifurcation or internal carotid artery stenoses Dominant left vertebral artery in the neck with no critical stenoses Intracranial vertebral arteries basilar artery posterior cerebral branches fill with no large vessel occlusions Juxtasellar internal carotid arteries, M1 segments middle cerebral arteries middle cerebral artery trifurcation vessels and anterior cerebral arteries fill with no large vessel occlusions IMPRESSION: No significant neck arterial stenoses No cerebral large vessel arterial occlusions or thrombus Dictated By: José Miguel Tolliver MD Signed By: <Electronically signed by José Miguel Tolliver MD in OV> 03/02/25 0840 Case was signed out to me essentially awaiting all lab work and CT of the head and CT angio of the head and neck. CT of the head was negative. CT angio of the head and neck were negative. The stroke neurologist does not recommend tPA due to the patient's comatose status. Patient's ABG showed a respiratory acidosis so both of the tidal volume and respiratory rate were increased. White count is 14,700. Urinary tox screen was positive for marijuana and fentanyl and benzodiazepines however before the urine was obtained the patient had already received fentanyl and Versed here in the emergency room. For the patient's blood pressure of 218/124 the patient was started on a Cardene drip. That combined with the propofol and fentanyl sedation has brought his systolic blood pressure down to 105 so the Cardene drip was stopped. Pupils are approximately 4 mm and equal bilaterally. The patient's social economist came into the emergency room to give much-needed history on this patient. He apparently lives at home alone in a trailer but is able to care for himself. He smokes on a regular basis and has a history of noncemented diabetes and hypertension. He has been noncompliant with his medications in the past. His last well time was 5 PM last night when he was seen. He has not been sick. He was not complaining of headache or fever. He was in his normal state of health last night at 5 PM. I discussed this case with the intensive care physician who will admit this patient to hospital for further treatment and evaluation for this patient's severe alteration in mental status and hypertension. It is quite possible this patient was suffering from hypertensive encephalopathy. Critical care time spent in this patient excluding other billable procedures was 35 minutes.
--- NOTE | 2025-03-02 18:28 | PC.NURSE ---
PT BACK FROM CT.
[2025-03-02 18:54] LABS: Collection Type, Urine Catheter; Squamous Epithelial Cell,Urine 0 /hpf (0-5)
[2025-03-02 19:06] LABS: Bilirubin,Urine Negative (Negative); Blood,Urine Negative (Negative); Clarity,Urine Clear (Clear/Hazy); Color,Urine Yellow (Lt Yel-Yel); Culture Indicated,Urine Not Indicated; Glucose, Urine Negative (Negative); Hyaline Casts,Urine < 1 /hpf (0-1); Ketones,Urine 1+ (Negative); Leukocyte Esterase,Urine Negative (Negative); Nitrite,Urine Negative (Negative); PH,Urine 6.0 (5.0-7.0); Protein,Urine 1+ (Neg - Trace); RBC,Urine 2 /hpf (0-3); Specific Gravity,Urine 1.029 (1.001-1.035); Urobilinogen,Urine 2.0 mg/dL (0.0-1.0); WBC,Urine 1 /hpf (0-5)
[2025-03-02 19:17] LABS: Amphetamine/Methamp Scrn,U Negative (Negative); Barbiturate Screen,Urine Negative (Negative); Benzodiazepines Screen,Urine Positive (Negative); Benzoylecgonine Screen, Ur Negative (Negative); Fentanyl Screen,Urine Positive (Negative); Opiate Screen,Urine Negative (Negative); THC Screen,Urine Positive (Negative)
[2025-03-02] MEDS: PROPOFOL 1,000 MG IVPB 1,000 MG/100 ML VIAL 17.01 MG IV (21:20)
[2025-03-02] MEDS: fentaNYL 2,500 MCG/250 ML BAG 2,500 MCG/250 ML BAG 7.5 MCG IV (21:20)
--- NOTE | 2025-03-02 21:31 | PD.RESHP ---
Documentation for date of: 03/02/25 HPI History of Present Illness History of present illness: Chief complaint: Altered mental status HPI: Mr. Olmstead is a 59-year-old male with past medical history of primary hypertension, who was brought in by ambulance after being found unresponsive in his trailer. Given patient is unresponsive, majority of the history was obtained from the ED physician documentation, paramedics and executive secretary social welfare/caregiver. As per ED documentation, patient was brought in by paramedics with a GCS of 3, teleneuro was consulted after stroke alert was called, and patient was intubated to protect airway. He was also found to have a high blood pressure of 218/124 around 4:45 PM in the ED. The executive secretary social welfare who usually visits the patient every day at the trailer, presented to the ED about 1 hour after. As per executive secretary social welfare, patient is independent at home, is able to carry out ADLs without assistance. He was last seen well and his normal state around 5 PM yesterday 03/01/2025 when the executive secretary social welfare visited him. Patient was found in his trailer this morning completely obtunded and unresponsive. He has never been hospitalized for anything similar in the past. Is otherwise compliant with his medications for blood pressure and was in his usual state of health until yesterday. In the ED, patient was found to have blood pressure > 200/120, tachycardia HR 103-135 bpm, tachypnea RR 28 and low O2 sats of 91% on room air. Bedside blood glucose was 145 around the time of intubation. Initial laboratory workup remarkable for leukocytosis WBC 14.6 neutrophil predominant, hemoconcentration Hb 18.7 and hematocrit 53.2, CHEM panel within normal limits and mildly elevated albumin 5.3. Patient's ABG showed pH 7.28, CO2 57 and bicarb 24 on CHEM panel. Urinalysis showed 1+ protein, 1+ ketone, otherwise sterile. Drug screen showed positive results for fentanyl, benzodiazepine and marijuana, however these are not reliable as sample was taken after medications were given in the ED. Per ED physician, patient's mechanical ventilation settings were changed to improve ABG levels. ED consulted teleneurology who recommended blood pressure control with labetalol as needed, with goal 15% reduction in the next 24 hours. NIHSS 24, premorbid modified [place] scale unable to assess at the time of teleneuro evaluation. Patient was not a candidate for TNK, is outside window. On imaging, CT head and CTA head and neck negative for any acute findings. Patient to be admitted to ICU for work up of acute encephalopathy, on MV. Pending stroke r/o. In-house neurologist Dr. Torres is consulted for further recommendations. MR stroke protocol ordered for further evaluation. Allergies: NKFDA Social history: Lives in a trailer, independent but monitored by executive secretary social welfare/caregiver. Family history: Unknown Review of Systems Review of Systems ROS Unobtainable: unobtainable due to mental status Exam Vital Signs Temp Pulse Resp BP Pulse Ox O2 Del Method O2 Flow Rate 97 F 58 L 16 99/61 97 Mechanical Ventilation 47 03/02/25 20:15 03/02/25 21:27 03/02/25 21:27 03/02/25 21:27 03/02/25 21:27 03/02/25 21:27 03/02/25 20:46 FiO2 100 03/02/25 20:46 Narrative Exam Constitutional Obtunded, unresponsive GCS 3T HEENT PERRLA. Patent nares. Trachea midline. Intubated on MV: ACVC Respiratory Chest normal on inspection. Tattoos on chest. B/L breath sounds on auscultation. Cardiovascular S1 and S2 audible, RRR. No murmurs or carotid bruit. No gross JVD. Abdominal Soft and BS +, no hepato/splenomegaly Musculoskeletal Extremities tone within normal limits. B/L UE flexion of fingers, UE tattoos noted Neurological Unable to assess. NIHSS 24 Skin Multiple tattoos b/l UE, chest and b/l feet nail overgrowth Results: Labs 03/02/25 21:24 03/02/25 21:24 Labs: Short CBC 03/02/25 Range/Units 16:50 WBC 14.6 H (3.8-10.6) Thou/mm3 Hgb 18.7 H* (13.5-16.0) g/dL Hct 53.2 H (41.0-53.0) % Plt Count 360 (140-440) Thou/mm3 BMP 03/02/25 16:50 Sodium 142 Potassium 4.3 Chloride 107 Carbon Dioxide 24.1 BUN 12 Creatinine 1.1 Glucose 126 H Calcium 9.8 Cardiac Enzymes 03/02/25 Range/Units 16:50 Troponin I < 0.020 (0.0-0.045) ng/mL Liver Function 03/02/25 Range/Units 16:50 Total Bilirubin 0.7 (0.3-1.2) mg/dL AST 19 (0-34) U/L ALT 11 (10-49) U/L Alkaline Phosphatase 112 (46-116) U/L Albumin 5.3 H (3.5-5.0) gm/dL Urine 03/02/25 Range/Units 18:49 Urine Color Yellow (Lt Yel-Yel) Urine Clarity Clear (Clear/Hazy) Urine pH 6.0 (5.0-7.0) Ur Specific [place] 1.029 (1.001-1.035) Urine Protein 1+ A (Neg - Trace) Urine Glucose (UA) Negative (Negative) ABG Interpretation ABG results: 03/02/25 17:12 ABG pH 7.28 L ABG pCO2 57 H ABG pO2 418 H ABG HCO3 27 H ABG O2 Saturation 100 H ABG Base Excess -2 Quality Measures Quality Measures stroke Suspected type of Stroke: Unknown at this time Tenecteplase given: Reason(s) Tenecteplase not given: Outside the time window not given Rehab services: Speech Language Pathology eval ordered VTE Prophylaxis: pharmaceutical Antithrombotic by day 2:: not indicated (describe) Statin ordered: <75 y/o high intensity dose Anticoagulation ordered for A-fib or flutter (current or hx): not indicated Medications Home Medications and Allergies Home Medications ?Medication ?Instructions ?Recorded ?Confirmed ?Type Unobtainable 02/01/21 02/01/21 History Allergies Allergy/AdvReac Type Severity Reaction Status Date / Time bee venom protein (honey bee) Allergy Severe Rash Verified 03/02/25 16:42 Visit Medications Acetaminophen (Acetaminophen 325 Mg Tablet) 1,000 mg NG Q6H PRN PRN Reason: Fever >101.5 Stop: 04/01/25 21:02 Enoxaparin Sodium (Enoxaparin Sod Inj 40 Mg/0.4 Ml Syringe) 40 mg SC QPM GARCIA Stop: 03/17/25 20:59 Famotidine (Famotidine Inj 10 Mg/Ml Vial 2 Ml) 20 mg IVP Q12HR GARCIA Stop: 04/02/25 08:59 Nicardipine/Sodium Chloride (Cardene Ivpb) 20 mg in 200 mls @ 50 mls/hr IV .Q4H PRN; Protocol PRN Reason: Per Protocol Stop: 04/01/25 16:38 Last Titration: 03/02/25 17:45 Dose: 0 mg/hr, 0 mls/hr Propofol (Diprivan Ivpb) 1,000 mg in 100 mls @ 2.835 mls/hr IV .Q24H PRN; Protocol PRN Reason: PER PROTOCOL Stop: 04/01/25 17:24 Fentanyl Citrate (Sublimaze Inj 2,500 Mcg/250 Ml Bag) 2,500 mcg in 250 mls @ 2.5 mls/hr IV .Q24H PRN; Protocol PRN Reason: PER PROTOCOL Stop: 03/07/25 16:40 Ondansetron HCl (Ondansetron Inj 2 Mg/Ml Inj 2 Ml) 4 mg IVP Q6H PRN; Protocol PRN Reason: NAUSEA OR VOMITING Stop: 04/01/25 21:02 Discontinued Medications Etomidate (Etomidate Inj 2 Mg/Ml Vial 10 Ml) 20 mg IV X1 ONE Stop: 03/02/25 16:41 Last Admin: 03/02/25 16:49 Dose: 20 mg Midazolam HCl (Versed Pf Inj In Ns Premix) 100 mg in 100 mls @ 1 mls/hr IV .Q24H PRN; Protocol PRN Reason: PER PROTOCOL Stop: 03/07/25 16:39 Last Titration: 03/02/25 17:40 Dose: 0 mg/hr, 0 mls/hr Fentanyl Citrate (Sublimaze Inj 2,500 Mcg/250 Ml Bag) 2,500 mcg in 250 mls @ 2.5 mls/hr IV .Q24H PRN; Protocol PRN Reason: PER PROTOCOL Stop: 03/07/25 16:40 Last Titration: 03/02/25 20:15 Dose: 125 mcg/hr, 12.5 mls/hr Propofol (Diprivan Ivpb) 1,000 mg in 100 mls @ 2.835 mls/hr IV .Q24H PRN; Protocol PRN Reason: PER PROTOCOL Stop: 04/01/25 17:24 Last Titration: 03/02/25 20:15 Dose: 35 mcg/kg/min, 19.845 mls/hr Sodium Chloride (Ns) 1,000 mls @ 999 mls/hr IV .Q1H1M ONE Stop: 03/02/25 18:45 Last Infusion: 03/02/25 18:45 Dose: Infused Midazolam HCl (Midazolam Inj 1 Mg/Ml Vial 2 Ml) 5 mg IVP X1 ONE Stop: 03/02/25 17:11 Last Admin: 03/02/25 17:15 Dose: 5 mg Rocuronium [place] (Rocuronium Inj 10 Mg/Ml Vial 10 Ml) 50 mg IV X1 ONE Stop: 03/02/25 16:41 Last Admin: 03/02/25 16:51 Dose: 50 mg Assessment & Plan Plan Patient is a 59 year old male admitted to ICU for work up of acute encephalopathy, on MV. Pending stroke r/o . NEURO Acute metabolic encephalopathy On sedation while on MV Pending Stroke r/o Dx: - BIBA after being found unresponsive in his trailer, per paramedics had a GCS of 3 - Per ED documentation, patient was intubated to protect airway. - Teleneuro was consulted after stroke alert was called - The executive secretary social welfare who usually visits the patient every day at the trailer, presented to the ED about 1 hour after. As per executive secretary social welfare, patient is independent at home, is able to carry out ADLs without assistance. - He was last seen well and his normal state around 5 PM yesterday 03/01/2025 when the executive secretary social welfare visited him. - Patient was found in his trailer this morning completely obtunded and unresponsive. He has never been hospitalized for anything similar in the past. - On imaging, CT head and CTA head and neck : negative for any acute findings. - On Propofol+Fentanyl for sedation - Drug screen showed positive results for fentanyl, benzodiazepine and marijuana, however these are not reliable as sample was taken after medications were given in the ED. Rx: - RAAS goal changed from -3 to -1. Will titrate down on Propofol and Fentanyl to re-evaluate GCS - q2H Neuro checks - F/u ammonia levels, treat if elevated - Head of Bed elevated to 30 Degrees - Avoid hyperthermia. PRN Acetaminophen 1 g NG for fever >99.9 - Per Tele Neuro recs, will get MR stroke protocol. - Allow permissive HTN. Antihypertensives if BP >220/120, with a goal of 15% reduction in BP during the first 24 hours - HbA1C, Lipid Panel, TSH ordered - ECHO with bubble study ordered - Seizure precautions in place - DVT Prophylaxis with Lovenox 40 SC qD - Dr Torres consulted, pending in-house Neurology recommendations CVS Sinus tachycardia? resolved Hypertensive emergency Dx: - In the ED, 218/124 around 4:45 PM and tachycardia HR 103-135 bpm - ED treated BP with Nicardipine gtt @ 5mcg/h, which was discontinued before admission Rx: - Follow up EKG. Tele monitor shows sinus rhythm. - HR dropped from 135 bpm --> 58 bpm within 1 hour of Propofol gtt commencement - BP also dropped from >200/120 --> 100/60s within 2 hours after NIcardipine gtt was started. Drip discontinued within 30-40 mins. - Given BP overcorrected (15% in 24 hours ideal), will continue to watch closely. Anticipate improvement as Propofol is titrated down as RAAS goal changed. PULM MV for inability to to protect airway Dx: - In the ED, tachypnea RR 28 and low O2 sats of 91% on room air. - ABG around 5PM: pH 7.28, CO2 57 and bicarb 24 on CHEM panel. - On ACVC setting, RR increased by ED post ABG sample results Rx: - Repeat ABG ordered for 2200 - Will get AM draw ABG sample - Continue on ACVC setting, will adjust based on ABG - Monitor for improvement in encephalopathy for possible extubation HEME/ONC Leukocytosis Hemoconcentration Dx: - leukocytosis WBC 14.6 neutrophil predominant - hemoconcentration Hb 18.7 , hematocrit 53.2 Rx: - Repeat CBC and Renal panel ordered at 2200 - Anticipate improvement after 1L bolus IVF ordered in ED - Will give additional 500 cc bolus x1 - Avoid maintenance IVF until MRIB negative GI/Hep No active problems RENAL No active problems ENDO No active problems ID No active problems ICU Health maintenance: Dispo: Admit to ICU for acute encephalopathy, unknown etiology Diet: N.p.o. DVT ppx: Enoxaparin 40mg SC qPM GI ppx: Famotidine 20 mg twice daily Mechanical ventilation: ACVC Sedation: Fentanyl + Propofol IV lines: 2 pIV Central line: No Arterial line: No Code status: FULL CODE Plan of care discussed with night attending Dr. Stinson, Zeus Coon MD PGY 3 This document was compiled using speech recognition software. Grammatical errors can be an occasional consequence of this system due to software limitations. Attending Provider Attestation/Addendum 59-year-old male patient was found unresponsive in his trailer this afternoon. The patient had a GCS o of 3 per report. Patient was intubated for airway protection. His blood pressure was elevated. Patient was nicardipine drip briefly. I saw him in the ED bed 4. He is on propofol and fentanyl. CT scan of the brain without contrast showed no acute infarction no bleed. Gen: Unresponsive, sedated Skin: warm, good turgor, HEENT: Pupils 2 mm, endotracheal tube in place Neck: supple, no JVD, no thyromegaly Lungs: Breath sounds heard both lung [place] CV: regular rate and rhythm, no murmurs, no edema Abd: soft and no guarding Ext: no edema Neuro: Unresponsive, sedated Assessment and plan 1. Unresponsiveness, probable stroke 2. Mechanical ventilation 3. Hypertensive emergency -Will admit to ICU -Continue mechanical ventilation -The patient is on propofol and fentanyl -Routine monitoring per ICU -Neurology evaluation -Follow-up MRI study -Follow-up echocardiogram -Check labs -Critical care time 45 minutes - I discussed with and supervised the resident physician who took care of this patient. I agree with the assessment and plan as above.
[2025-03-02 21:33] LABS: Basophils # (Auto) 0.1 Thou/mm3 (0.0-0.2); Basophils % (Auto) 0 % (0-2.5); Eosinophils # (Auto) 0.0 Thou/mm3 (0.0-0.5); Eosinophils % (Auto) 0 % (0-10); Hematocrit 46.2 % (41.0-53.0); Hemoglobin 15.5 g/dL (13.5-16.0); Immature Granulocytes Auto 0.05 Thou/mm3 (0.00-0.00); Lymphocytes # (Auto) 2.2 Thou/mm3 (1.0-4.8); Lymphocytes % (Auto) 16 % (10-50); Mean Corpuscular HGB Conc 33.5 g/dl (31.0-37.0); Mean Corpuscular Hemoglobin 30.5 pg (25.0-35.0); Mean Corpuscular Volume 91 fL (80-100); Monocytes # (Auto) 0.9 Thou/mm3 (0.0-0.8); Monocytes % (Auto) 6 % (0-12); Neutrophils # (Auto) 10.6 Thou/mm3 (1.8-7.7); Neutrophils % (Auto) 77 % (37-80); Nucleated Red Blood Cell # 0.00 Thou/mm3 (0.00-0.00); Nucleated Red Blood Cell % 0 /100 WBC (0); Platelet Count 307 Thou/mm3 (140-440); RDW Standard Deviation 42.5 fL (35.1-43.9); Red Blood Count 5.09 Miln/mm3 (4.50-5.90); White Blood Count 13.8 Thou/mm3 (3.8-10.6)
[2025-03-02 22:01] LABS: Ammonia 66 uMol/L (11-32)
[2025-03-02 22:02] LABS: Albumin, Serum 4.3 gm/dL (3.5-5.0); Anion Gap 9 (7-16); BUN/Creatinine Ratio 15 Ratio (12-20); Blood Urea Nitrogen 16 mg/dL (9-23); Calcium 8.3 mg/dL (8.3-10.6); Calcium (Corrected) 8.3 mg/dL (8.5-10.1); Carbon Dioxide 22.9 mMol/L (20.0-31.0); Chloride 110 mMol/L (98-107); Creatinine (Component) 1.1 mg/dL (0.6-1.3); Estimated Creatinine Clearance 88.4 mL/min (>60); Glucose 131 mg/dL (74-106); Osmolality,Calculated 286 (275-295); Phosphorous 4.2 mg/dL (2.4-5.1); Potassium 5.1 mMol/L (3.4-5.1); Sodium 142 mMol/L (136-145); eGFR > 60 See Note
[2025-03-02 22:40] LABS: Base Excess -1 (-3-3); HCO3 25 mEq/L (20-26); O2 Saturation 100 % (91-98); PCO2 45 mmHg (32.0-48.0); PO2 162 mmHg (83-108); pH, Arterial 7.35 (7.35-7.45)
[2025-03-02 22:41] LABS: Allen Test Performed/OK; Inspired Oxygen, FIO2 60 %; Puncture Site Left Radial
[2025-03-02] MEDS: SODIUM CHLORIDE 0.9% 500 ML 500 ML 999 ML IV (22:56)
[2025-03-02] MEDS: CALCIUM GLUCONATE 10% INJ 1 GM/10 ML VIAL IV (22:57)
[2025-03-02] MEDS: LACTULOSE SYRUP 20 GM/30 ML UDC NG (22:57)
[2025-03-03] VITALS (100 sets, daily range): BP systolic 93–172; BP diastolic 58–100; PULSE 50–99; RESP 0–94; TEMP 36.3–37.4; O2SAT 88–100; BMI 28.2
--- NOTE | 2025-03-03 | XR_ITS ---
Examinations: MRI Brain without intravenous contrast. MRA brain without intravenous contrast. MRA carotids without intravenous contrast 3-D vascular reconstructions Date and time of exam: March 03, 2025, 7036 hours INDICATIONS: Stroke alert, patient found down unconscious last night obtunded unresponsive Technique: Multiple axial and sagittal images of the brain have been obtained MRA brain carotid images without contrast obtained, including 3-D postprocessing, vascular maximum intensity projection images Findings: [place] is not enlarged. The optic chiasm and infundibular stalk are not remarkable. Prepontine and interpeduncular cisterns are not enlarged. No localized enlargement of the medulla or deisy. Fourth ventricle and cerebellar tonsils normal in position. Subacute hemorrhage is not seen. Fourth ventricle is midline. Mass in the cerebellopontine angle region is not evident. 7th and 8th nerve complexes exhibits symmetry. Globes are symmetrical with no retro-orbital mass. Increased white matter signal present, punctate foci of increased signal in the white matter and subtle increased signal on the FLAIR images involving the cerebral cortex Diffusion-weighted images demonstrate no focus of restricted diffusion Mass-effect upon the ventricular system is not identified. MRA carotid images degraded by patient motion. MRA brain images no large vessel occlusions Impression: Negative for acute hemorrhage mass effect or midline shift No acute infarct Scattered punctate foci of increased signal in the white matter which could represent demyelinating disease, accelerated chronic microvascular white matter change Very subtle increased signal in the cerebral cortex on the FLAIR images, consider hypoxic ischemic encephalopathy, this appearance should be correlated with neurology consultation and clinical findings
[2025-03-03 01:10] LABS: Alcohol, Blood Medical < 3.0 mg/dL (0-10.0)
[2025-03-03 02:22] LABS: Base Excess -4 (-3-3); HCO3 24 mEq/L (20-26); Inspired Oxygen, FIO2 50 %; O2 Saturation 100 % (91-98); PCO2 54 mmHg (32.0-48.0); PO2 163 mmHg (83-108); pH, Arterial 7.26 (7.35-7.45)
[2025-03-03 02:23] LABS: Allen Test Performed/OK; Puncture Site Right Radial
[2025-03-03 06:02] LABS: Basophils # (Auto) 0.1 Thou/mm3 (0.0-0.2); Basophils % (Auto) 1 % (0-2.5); Eosinophils # (Auto) 0.2 Thou/mm3 (0.0-0.5); Eosinophils % (Auto) 1 % (0-10); Hematocrit 45.3 % (41.0-53.0); Hemoglobin 15.4 g/dL (13.5-16.0); Immature Granulocytes Auto 0.06 Thou/mm3 (0.00-0.00); Lymphocytes # (Auto) 3.4 Thou/mm3 (1.0-4.8); Lymphocytes % (Auto) 27 % (10-50); Mean Corpuscular HGB Conc 34.0 g/dl (31.0-37.0); Mean Corpuscular Hemoglobin 31.2 pg (25.0-35.0); Mean Corpuscular Volume 92 fL (80-100); Monocytes # (Auto) 1.1 Thou/mm3 (0.0-0.8); Monocytes % (Auto) 9 % (0-12); Neutrophils # (Auto) 7.8 Thou/mm3 (1.8-7.7); Neutrophils % (Auto) 62 % (37-80); Nucleated Red Blood Cell # 0.00 Thou/mm3 (0.00-0.00); Nucleated Red Blood Cell % 0 /100 WBC (0); Platelet Count 295 Thou/mm3 (140-440); RDW Standard Deviation 44.5 fL (35.1-43.9); Red Blood Count 4.94 Miln/mm3 (4.50-5.90); White Blood Count 12.5 Thou/mm3 (3.8-10.6)
[2025-03-03] MEDS: PROPOFOL 1,000 MG IVPB 1,000 MG/100 ML VIAL 11.34 MG IV (06:03)
[2025-03-03 06:32] LABS: Albumin, Serum 4.0 gm/dL (3.5-5.0); Anion Gap 9 (7-16); BUN/Creatinine Ratio 13 Ratio (12-20); Blood Urea Nitrogen 13 mg/dL (9-23); Calcium 8.7 mg/dL (8.3-10.6); Calcium (Corrected) 8.7 mg/dL (8.5-10.1); Carbon Dioxide 23.6 mMol/L (20.0-31.0); Cardiac Risk Estimate 3.5 RATIO (4.0-6.7); Chloride 111 mMol/L (98-107); Cholesterol 135 mg/dL (132-200); Creatinine (Component) 1.0 mg/dL (0.6-1.3); Estimated Creatinine Clearance 97.2 mL/min (>60); Glucose 95 mg/dL (74-106); HDL Cholesterol 39 mg/dL (40-60); LDL Cholesterol,Calculated 72 mg/dL (0-130); Magnesium 1.7 mg/dL (1.6-2.6); Osmolality,Calculated 286 (275-295); Phosphorous 3.5 mg/dL (2.4-5.1); Potassium 3.9 mMol/L (3.4-5.1); Sodium 144 mMol/L (136-145); Thyroid Stimulating Hormone 1.53 uIU/mL (0.55-4.78); Triglycerides 121 mg/dL (30-150); eGFR > 60 See Note
[2025-03-03 06:39] LABS: Glucose Estimated Average 111 mg/dL (80-131); Hemoglobin A1C 5.5 % Hgb (4.8-6.0)
--- NOTE | 2025-03-03 06:57 | ECHO_ITS ---
Transthoracic Echo Report Ht (in): 72 Wt (lb): 208 Exam Location: [facility] Status: Inpatient Bricklayer Supervisor: Francisca Mendez Indications: Procedure Performed: BP: 128 / 74 HR: 62 MEASUREMENTS (Male / Female) Normal Values 2D ECHO LV Diastolic Diameter PLAX 5.7 cm 4.2 - 5.9 / 3.9 - 5.3 cm LV Systolic Diameter PLAX 4.0 cm IVS Diastolic Thickness 1.0 cm 0.6 - 1.0 / 0.6 - 0.9 cm LVPW Diastolic Thickness 1.3 cm 0.6 - 1.0 / 0.6 - 0.9 cm LV Relative Wall Thickness 0.4 LVOT Diameter 1.9 cm Ascending Aorta Diameter 3.2 cm M-MODE AV Cusp Separation MM 1.5 cm DOPPLER AV Peak Velocity 124.0 cm/s AV Peak Gradient 6.2 mmHg AV Mean Gradient 3.0 mmHg AV Velocity Time Integral 22.1 cm LVOT Peak Velocity 83.6 cm/s LVOT Peak Gradient 2.8 mmHg LVOT Velocity Time Integral 18.4 cm LVOT Cardiac Index 1465.9 cm?/min?m? AV Area Cont Eq vti 2.4 cm? AV Area Cont Eq pk 1.9 cm? MV Area PHT 3.6 cm? Mitral E Point Velocity 69.6 cm/s Mitral A Point Velocity 59.0 cm/s Mitral E to A Ratio 1.2 LV E' Lateral Velocity 9.6 cm/s Mitral E to LV E' Lateral Ratio 7.3 LV E' Septal Velocity 9.5 cm/s Mitral E to LV E' Septal Ratio 7.4 TR Peak Velocity 174.0 cm/s TR Peak Gradient 12.1 mmHg PV Peak Velocity 105.0 cm/s PV Peak Gradient 4.4 mmHg FINDINGS Left Ventricle Normal left ventricular size, wall thickness, systolic function with no obvious regional wall motion abnormalities. Normal left ventricular diastolic filling pattern for age. The ejection fraction is visually estimated at 55-60 %. Right Ventricle The right ventricle is normal in size and systolic function. Left Atrium The left atrium is normal by two-dimensional, color flow and Doppler imaging with no structural abnormalities, no thrombus formation present. Right Atrium The right atrium is normal by two-dimensional imaging, color flow and Doppler imaging with no structural abnormalities, no thrombus formation present. Atrial Septum No patent foramen ovale demonstrated by agitated saline injection. Aorta The aorta is normal by two-dimensional, color flow and Doppler interrogation. Mitral Valve The mitral valve is normal by two-dimensional, color flow and Doppler interrogation. Trace to mild mitral regurgitation. Aortic Valve The aortic valve is trileaflet and normal by two-dimensional, color flow and Doppler interrogation. There is no significant aortic valve regurgitation. Tricuspid Valve The tricuspid valve is normal by two-dimensional, color flow and Doppler interrogation.there is trace tricuspid valve regurgitation. Pulmonic Valve The pulmonic valve is not well visualized. There is no significant pulmonic valve regurgitation. Vessels The pulmonary artery appears normal. The inferior vena cava pulmonary and hepatic veins appear normal. Pericardium The pericardium is normal by two-dimensional imaging. There is no significant pericardial effusion. CONCLUSIONS Indication: stroke bubble study Nondiagnostic bubble study secondary to poor windows and suboptimal images.. Consider SELMA if high index of clinical suspicion. Normal left ventricular size and function. Approximate ejection fraction is 55- 60%. Normal right ventricular size and function. Trace mitral and trace tricuspid regurgitation noted. No pericardial effusion Pancho Morgan (Electronically Signed) Final Date: 03 March 2025 18:04
[2025-03-03] MEDS: MIDAZOLAM INJ 1 MG/ML VIAL 2 ML 2 MG IVP (07:10)
[2025-03-03] MEDS: FAMOTIDINE INJ 10 MG/ML VIAL 2 ML 20 MG IVP ×2 (09:25→20:04)
[2025-03-03] MEDS: Magnesium Sulfate 4 GM Ivpb 4 GM/50 ML BAG IV (09:25)
[2025-03-03 09:54] LABS: Creatine Kinase 42 U/L (34-171)
[2025-03-03] MEDS: ASPIRIN 81 MG CHEW PO (10:39)
--- NOTE | 2025-03-03 13:19 | ESPR_ITS ---
<Statement entered by Stuart Whelan MD - 03/03/25 14:44> Patient was seen and examined in the ICU. Overnight, patient was admitted for altered mental status. He was found to have significantly elevated blood pressure with systolic in 200s. He was started on nicardipine drip in the ED and blood pressure dropped significantly. His GCS was 3 and was unable to protect his airway and therefore was intubated and mechanically ventilated. Patient was not a candidate for TNK was outside window. Last well-known time was 1700 on 03/02/25. NIHS score was 24. Teleneuro was consulted. 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 No acute change. This morning, patient was weaned off on sedation with propofol and fentanyl with RASS goal of 0. He was seen interactive and was able to move his extremities. Patient was extubated without any complication. Full neurological exam revealed that patient does not have any focal neurological deficit. Most likely his altered mentation was related to hypertensive emergency. Patient was continued on aspirin and statin therapy. Primary team wants to continue with full stroke workup including MRI brain stroke protocol and echo. Blood pressure has been stable since extubation. Patient was downgraded to floors for continuation of care. I discussed and supervised with the hospitality internship physician who took care of this patient. I personally saw and examined the patient. I agree with most of the assessment and plan. Disclaimer: Despite multiple revisions, due to the dictation software being used, the document bellow may not be free of grammatical errors including phonetic/typographic errors. However, this does not deter from our commitment to providing health care in the patient's best interest in mind. Plan of care discussed with attending Physician Dr.Ahmad Stuart Whelan MD PGY-3 Documentation for date of: 03/03/25 Subjective Subjective Interval history: Mr. Olmstead is a 59-year-old male with past medical history of primary hypertension, who was brought in by ambulance after being found unresponsive in his trailer. Given patient is unresponsive, majority of the history was obtained from the ED physician documentation, paramedics and social services technician/caregiver. As per ED documentation, patient was brought in by paramedics with a GCS of 3, teleneuro was consulted after stroke alert was called, and patient was intubated to protect airway. He was also found to have a high blood pressure of 218/124 around 4:45 PM in the ED. The social services technician who usually visits the patient every day at the trailer, presented to the ED about 1 hour after. As per social services technician, patient is independent at home, is able to carry out ADLs without assistance. He was last seen well and his normal state around 5 PM yesterday 03/01/2025 when the social services technician visited him. Patient was found in his trailer this morning completely obtunded and unresponsive. He has never been hospitalized for anything similar in the past. Is otherwise compliant with his medications for blood pressure and was in his usual state of health until yesterday. In the ED, patient was found to have blood pressure > 200/120, tachycardia HR 103-135 bpm, tachypnea RR 28 and low O2 sats of 91% on room air. Bedside blood glucose was 145 around the time of intubation. Initial laboratory workup remarkable for leukocytosis WBC 14.6 neutrophil predominant, hemoconcentration Hb 18.7 and hematocrit 53.2, CHEM panel within normal limits and mildly elevated albumin 5.3. Patient's ABG showed pH 7.28, CO2 57 and bicarb 24 on CHEM panel. Urinalysis showed 1+ protein, 1+ ketone, otherwise sterile. Drug screen showed positive results for fentanyl, benzodiazepine and marijuana, however these are not reliable as sample was taken after medications were given in the ED. Per ED physician, patient's mechanical ventilation settings were changed to improve ABG levels. ED consulted teleneurology who recommended blood pressure control with labetalol as needed, with goal 15% reduction in the next 24 hours. NIHSS 24, premorbid modified [place] scale unable to assess at the time of teleneuro evaluation. Patient was not a candidate for TNK, is outside window. On imaging, CT head and CTA head and neck negative for any acute findings. Patient was admitted to ICU for work up of acute encephalopathy, on MV. Pending stroke r/o. In-house neurologist Dr. Torres is consulted for further recommendations. MR stroke protocol ordered for further evaluation. Interval History: 03/03/2025: Patient this morning was being weaned off of sedation and transiently became agitated and was put back onto sedation. Patient was later weaned off of sedation with improved mentation, placed on pressure support with ability to protect airway and was successfully extubated; currently saturating well on room air. Patient was having some chest discomfort while being weaned off sedation which resolved after extubation, likely due to ET tube. Patient's workup initially included stroke workup; CT imaging was largely negative for any acute disease, only notable for old infarct; s/p extubation patient was fully examined and was found to have full strenght in all extremities, sensation was globally intact and equal, patient's cranial nerves were all intact, patient's cerebellar function was intact as well with no focal neuro deficits noted, patient was A&Ox3. Patient is being downgraded in hemodynamically stable condition, no longer needing ICU level of care. Exam Vital Signs Temp Pulse Resp BP Pulse Ox O2 Del Method O2 Flow Rate 99.3 F 54 L 14 128/74 93 L Mechanical Ventilation 3 03/03/25 08:00 03/03/25 13:00 03/03/25 13:00 03/03/25 13:00 03/03/25 13:00 03/03/25 08:00 03/03/25 09:28 FiO2 50 03/03/25 09:19 Narrative Exam General: No acute distress; A&Ox3 Skin: Warm, dry, intact, no obvious rash; tattoos, poor toenail hygiene HENT: NCAT, EOMI/PERRL, not icteric. External ears normal. No rhinorrhea. Moist mucous membranes Cardiovascular: Regular rate, regular rhythm, no murmur, +S1/S2. Respiratory: Lungs CTAB GI: Soft, nontender, non-distended. No guarding or rebound tenderness. : No suprapubic tenderness. No flank tenderness bilaterally. Extremities: no edema, no cyanosis, no clubbing. Extremity pulses present Neuro: full strenght in all extremities, sensation was globally intact and equal, cranial nerves 2-12 were all intact, patient's cerebellar function was intact as well with no focal neuro deficits noted, patient was A&Ox3 Psychiatric: Cooperative, appropriate affect. Objective Labs 03/03/25 05:11 03/03/25 05:11 Labs: Laboratory Results - last 24 hr 03/02/25 03/02/25 03/02/25 00:37 16:50 17:12 WBC 14.6 H RBC 5.98 H Hgb 18.7 H* Hct 53.2 H MCV 89 MCH 31.3 MCHC 35.2 RDW Std Deviation 41.4 Plt Count 360 Neut % (Auto) 68 Lymph % (Auto) 24 [place] % (Auto) 7 Eos % (Auto) 1 Baso % (Auto) 1 Neut # (Auto) 9.9 H Lymph # (Auto) 3.6 [place] # (Auto) 1.0 H Eos # (Auto) 0.1 Baso # (Auto) 0.1 Immature Gran # (Auto) 0.05 H Absolute Nucleated RBC 0.00 Immature Gran % 0 Nucleated RBC % 0 PT 11.2 INR 1.1 APTT 29.1 Puncture Site Not Performed. ABG pH 7.28 L ABG pCO2 57 H ABG pO2 418 H ABG HCO3 27 H ABG O2 Saturation 100 H ABG Base Excess -2 FiO2 21 Sodium 142 Potassium 4.3 Chloride 107 Carbon Dioxide 24.1 Anion Gap 11 BUN 12 Creatinine 1.1 Estim Creat Clear Calc 88.4 eGFR > 60 BUN/Creatinine Ratio 11 L Glucose [address] Glu mg/dL Hemoglobin A1c Calculated Osmolality 284 Calcium 9.8 Corrected Calcium 9.8 Phosphorus Magnesium 1.8 Total Bilirubin 0.7 AST 19 ALT 11 Alkaline Phosphatase 112 Ammonia Total Creatine Kinase Troponin I < 0.020 B-Natriuretic Peptide 25 Total Protein 7.8 Albumin 5.3 H Globulin 2.5 Albumin/Globulin Ratio 2.1 Triglycerides Cholesterol LDL Cholesterol, Calc HDL Cholesterol Cholesterol/HDL Ratio TSH Ur Collection Type Urine Color Urine Clarity Urine pH Ur Specific [place] Urine Protein Urine Glucose (UA) Urine Ketones Urine Blood Urine Nitrite Urine Bilirubin Urine Urobilinogen (Auto) Ur Leukocyte Esterase Urine RBC Urine WBC Ur Squamous Epith Cells Urine Bacteria Hyaline Casts Ur Culture Indicated? Urine Opiates Screen Urine Fentanyl Screen Ur Barbiturates Screen U Amphetamin/Meth Scrn U Benzodiazepines Scrn U Cocaine Metab Screen U Marijuana (THC) Screen Ethyl Alcohol < 3.0 Cancelled 03/02/25 03/02/25 03/02/25 18:49 21:24 22:34 WBC 13.8 H RBC 5.09 Hgb 15.5 D Hct 46.2 MCV 91 MCH 30.5 MCHC 33.5 RDW Std Deviation 42.5 Plt Count 307 D Neut % (Auto) 77 Lymph % (Auto) 16 [place] % (Auto) 6 Eos % (Auto) 0 Baso % (Auto) 0 Neut # (Auto) 10.6 H Lymph # (Auto) 2.2 [place] # (Auto) 0.9 H Eos # (Auto) 0.0 Baso # (Auto) 0.1 Immature Gran # (Auto) 0.05 H Absolute Nucleated RBC 0.00 Immature Gran % 0 Nucleated RBC % 0 PT INR APTT Puncture Site Left Radial ABG pH 7.35 ABG pCO2 45 D ABG pO2 162 H D ABG HCO3 25 ABG O2 Saturation 100 H ABG Base Excess -1 FiO2 60 Sodium 142 Potassium 5.1 D Chloride 110 H Carbon Dioxide 22.9 Anion Gap 9 BUN 16 Creatinine 1.1 Estim Creat Clear Calc 88.4 eGFR > 60 BUN/Creatinine Ratio 15 [address]ucose [address] Glu mg/dL Hemoglobin A1c Calculated Osmolality 286 Calcium 8.3 D Corrected Calcium 8.3 L D Phosphorus 4.2 Magnesium Total Bilirubin AST ALT Alkaline Phosphatase Ammonia 66 H Total Creatine Kinase Troponin I B-Natriuretic Peptide Total Protein Albumin 4.3 D Globulin Albumin/Globulin Ratio Triglycerides Cholesterol LDL Cholesterol, Calc HDL Cholesterol Cholesterol/HDL Ratio TSH Ur Collection Type Catheter Urine Color Yellow Urine Clarity Clear Urine pH 6.0 Ur Specific [place] 1.029 Urine Protein 1+ A Urine Glucose (UA) Negative Urine Ketones 1+ A Urine Blood Negative Urine Nitrite Negative Urine Bilirubin Negative Urine Urobilinogen (Auto) 2.0 Ur Leukocyte Esterase Negative Urine RBC 2 Urine WBC 1 Ur Squamous Epith Cells 0 Urine Bacteria None Hyaline Casts < 1 Ur Culture Indicated? Not Indicated Urine Opiates Screen Negative Urine Fentanyl Screen Positive A Ur Barbiturates Screen Negative U Amphetamin/Meth Scrn Negative U Benzodiazepines Scrn Positive A U Cocaine Metab Screen Negative U Marijuana (THC) Screen Positive A Ethyl Alcohol Cancelled 03/03/25 03/03/25 02:14 05:11 WBC 12.5 H RBC 4.94 Hgb 15.4 Hct 45.3 MCV 92 MCH 31.2 MCHC 34.0 RDW Std Deviation 44.5 H Plt Count 295 Neut % (Auto) 62 Lymph % (Auto) 27 [place] % (Auto) 9 Eos % (Auto) 1 Baso % (Auto) 1 Neut # (Auto) 7.8 H Lymph # (Auto) 3.4 [place] # (Auto) 1.1 H Eos # (Auto) 0.2 Baso # (Auto) 0.1 Immature Gran # (Auto) 0.06 H Absolute Nucleated RBC 0.00 Immature Gran % 1 H Nucleated RBC % 0 PT INR APTT Puncture Site Right Radial ABG pH 7.26 L ABG pCO2 54 H ABG pO2 163 H ABG HCO3 24 ABG O2 Saturation 100 H ABG Base Excess -4 L FiO2 50 Sodium 144 Potassium 3.9 D Chloride 111 H Carbon Dioxide 23.6 Anion Gap 9 BUN 13 Creatinine 1.0 Estim Creat Clear Calc 97.2 eGFR > 60 BUN/Creatinine Ratio [address] Glu mg/dL 111 Hemoglobin A1c 5.5 Calculated Osmolality 286 Calcium 8.7 Corrected Calcium 8.7 Phosphorus 3.5 Magnesium 1.7 Total Bilirubin AST ALT Alkaline Phosphatase Ammonia Total Creatine Kinase 42 Troponin I B-Natriuretic Peptide Total Protein Albumin 4.0 Globulin Albumin/Globulin Ratio Triglycerides 121 Cholesterol 135 LDL Cholesterol, Calc 72 HDL Cholesterol 39 L Cholesterol/HDL Ratio 3.5 L TSH 1.53 Ur Collection Type Urine Color Urine Clarity Urine pH Ur Specific [place] Urine Protein Urine Glucose (UA) Urine Ketones Urine Blood Urine Nitrite Urine Bilirubin Urine Urobilinogen (Auto) Ur Leukocyte Esterase Urine RBC Urine WBC Ur Squamous Epith Cells Urine Bacteria Hyaline Casts Ur Culture Indicated? Urine Opiates Screen Urine Fentanyl Screen Ur Barbiturates Screen U Amphetamin/Meth Scrn U Benzodiazepines Scrn U Cocaine Metab Screen U Marijuana (THC) Screen Ethyl Alcohol ABG Interpretation ABG results: 03/02/25 03/02/25 03/03/25 17:12 22:34 02:14 ABG pH 7.28 L 7.35 7.26 L ABG pCO2 57 H 45 D 54 H ABG pO2 418 H 162 H D 163 H ABG HCO3 27 H 25 24 ABG O2 Saturation 100 H 100 H 100 H ABG Base Excess -2 -1 -4 L Quality Measures Quality Measures stroke Suspected type of Stroke: Unknown at this time Tenecteplase given: Reason(s) Tenecteplase not given: Outside the time window not given Rehab services: PT evaluation ordered and Speech Language Pathology eval ordered VTE Prophylaxis: pharmaceutical (Lovenox) Antithrombotic by day 2:: not indicated (describe) Statin ordered: <75 y/o high intensity dose Anticoagulation ordered for A-fib or flutter (current or hx): not indicated Assessment & Plan Assessment Current Active Medications: Generic Name Dose Route Start Last Admin Trade Name Freq PRN Reason Stop Dose Admin Acetaminophen 1,000 mg 03/03/25 06:20 Acetaminophen 325 Mg Tablet NG 04/01/25 21:02 Q6H PRN fever >99.9 Aspirin 81 mg 03/03/25 09:45 03/03/25 10:39 Aspirin 81 Mg Chew PO 04/02/25 09:44 81 mg QDAY GARCIA Administration Atorvastatin Calcium 40 mg 03/03/25 21:00 Atorvastatin Calcium 20 Mg Tablet PO 04/02/25 20:59 HS GARCIA Enoxaparin Sodium 40 mg 03/03/25 21:00 Enoxaparin Sod Inj 40 Mg/0.4 Ml Syringe SC 03/17/25 20:59 QPM GARCIA Famotidine 20 mg 03/03/25 09:00 03/03/25 09:25 Famotidine Inj 10 Mg/Ml Vial 2 Ml IVP 04/02/25 08:59 20 mg Q12HR GARCIA Administration Propofol 1,000 mg in 100 mls @ 2.835 mls/hr 03/02/25 21:16 03/03/25 11:14 Diprivan Ivpb IV 04/01/25 17:24 0 mcg/kg/min .Q24H PRN 0 mls/hr PER PROTOCOL Titration Protocol 5 MCG/KG/MIN Fentanyl Citrate 2,500 mcg in 250 mls @ 2.5 mls/hr 03/02/25 21:16 03/03/25 11:17 Sublimaze Inj 2,500 Mcg/250 Ml Bag IV 03/07/25 16:40 0 mcg/hr .Q24H PRN 0 mls/hr PER PROTOCOL Titration Protocol 25 MCG/HR Ondansetron HCl 4 mg 03/02/25 21:03 Ondansetron Inj 2 Mg/Ml Inj 2 Ml IVP 04/01/25 21:02 Q6H PRN NAUSEA OR VOMITING Protocol Plan Patient is a 59 year old male admitted to ICU for work up of acute encephalopathy, on MV. Pending stroke r/o . NEURO PRES syndrome, improved Acute metabolic encephalopathy, RESOLVED DDx: PRES syndrome vs HTN encephalopathy vs stroke Patient stroke workup thus far has been negative. Patient had no neuro deficits noted after full neuro exam after successful extubation. Patient's hypertensive emergency leads us to thinking more likely PRES vs hypertensive encephalopathy. Patient came in with with BP 220/120 and fully obtunded. Dx: - BIBA after being found unresponsive in his trailer, per paramedics had a GCS of 3. Last well known around 5 PM 03/01/2025 when the social services technician visited him. The social services technician who usually visits the patient every day at the [facility], presented to the ED about 1 hour after. As per social services technician, patient is independent at home, is able to carry out ADLs without assistance. - He was last seen well and his normal state around 5 PM yesterday 03/01/2025 when the social services technician visited him. - Per ED documentation, patient was intubated to protect airway. - Teleneuro was consulted after stroke alert was called. - On imaging, CT head and CTA head and neck : negative for any acute findings. - 03/03: -Weaned off of sedation followed by successful extubation. -s/p extubation patient was fully examined and was found to have full strenght in all extremities,sensation was globally intact and equal, patient's cranial nerves were all intact, patient's cerebellar function was intact as well with no focal neuro deficits noted, patient was A&Ox3. -HbA1C, Lipid Panel, TSH all within normal limits -Passed speech's swallow evaluation; diet started Rx: - Started scheduled aspirin & atorvastatin - ECHO with bubble study ordered - MRI stroke protocol ordered - Seizure precautions in place - DVT Prophylaxis with Lovenox 40 SC qD - Dr Torres consulted, pending in-house Neurology recommendations CVS Sinus tachycardia? resolved Hypertensive emergency, resolved Dx: - In the ED, 218/124 around 4:45 PM and tachycardia HR 103-135 bpm - ED treated BP with Nicardipine gtt @ 5mcg/h, which was discontinued before admission - HR dropped from 135 bpm --> 58 bpm within 1 hour of Propofol gtt commencement - BP also dropped from >200/120 --> 100/60s within 2 hours after NIcardipine gtt was started. Drip discontinued within 30-40 mins. Rx: - Tele-neuro recommended labetalol PO or vasotec IV for BP > 220/120 - Outpatient BP optimization - Given BP overcorrected (15% in 24 hours ideal), will continue to watch closely. PULM Acute hypoxic respiratory failure 2/2 Altered mental status, RESOLVED MV for inability to to protect airway, resolved Dx: - In the ED, tachypnea RR 28 and low O2 sats of 91% on room air. - ABG around 5PM: pH 7.28, CO2 57 and bicarb 24 on CHEM panel. - On ACVC setting, RR increased by ED post ABG sample results - Repeat ABG 22:34 : 7.35 pH, 45 pco2, 25 bicarb - Repeat ABG 03/03: 7.26 pH, pco2 54, 24 bicarb - Patient was weaned off of sedation with improved mentation, placed on pressure support with ability to protect airway and was successfully extubated; currently saturating well on room air. Rx: - Continue to monitor oxygenation status, airway, breathing. HEME/ONC Leukocytosis, improving Hemoconcentration hgb, resolved Dx: - leukocytosis WBC 14.6 -> 12.5 - hemoconcentration Hb 18.7 -> 15.4 Rx: - 1L bolus + 500 ml bolus was given, improved wbc, hgb GI/Hep No active problems RENAL No active problems ENDO No active problems ID No active problems ICU Health maintenance: Dispo: Admit to ICU for acute encephalopathy, unknown etiology Diet: N.p.o. DVT ppx: Enoxaparin 40mg SC qPM GI ppx: Famotidine 20 mg twice daily Mechanical ventilation: none Sedation: none IV lines: carb consistent Central line: No Arterial line: No Code status: FULL CODE Patient plan of care was discussed with the attending physician, Dr. Matias & senior resident Dr. Cleopatra Carter MD PGY-1 Attending Provider Attestation/Addendum Patient seen and examined with the above resident, Jude Carter MD. I agree with the findings, assessment, and plan of care as documented except for any differences below. Patient with acute encephalopathy, presume end organ damage from hypertensive emergency. Patient intubated in the ED. Sedation held. Off nicardipine. Adequately controlled with PRN dosing and resumption of home regimen. Successfully extubated allowing a neurologic assessment, nonfocal examination and mentation at baseline. Patient on RA and monitored in ICU for 6 hours post extubation prior to downgrade to medicine service for ongoing management. Will need formal speech/swallow, PT/OT evaluation prior to discharge. Mobilize as tolerated. Patient with negative CT/CTA for vascular disease, can forego additional stroke workup. A TIA as cause of his encephalopathy is rather unlikely. Neurology is following along and ultimately will defer to their expertise. Total critical care time: I personally spent 40 minutes for review of physiologic parameters, directing plan of care, coordination of care with other specialists, and counseling patient at bedside. This is exclusive of time spent teaching housestaff or performing any seperate billable procedures. The patient remained at significant risk for further morbidity and mortality warranting close monitoring and care only available in the ICU. Critical care services required for acute metabolic encephalopathy, hypertensive emergency, and acute respiratory failure.
--- NOTE | 2025-03-03 15:38 | ESPR_ITS ---
<Statement entered by Fede Rocha MD - 03/03/25 18:08> I saw and examined patient personally and supervised PGY 1 resident, Dr. Licona with formulating a management plan. I agree with the documentation with the exceptions as listed below. Patient is a 59 year old male admitted to ICU for work up of acute encephalopathy, on MV. Pending stroke r/o . Problem list: 1. CVA versus TIA 2. Acute metabolic encephalopathy?resolved 3. Hypertensive emergency?resolved 4. Leukocytosis 5. Seborrheic dermatitis Patient was brought in by EMS for altered mental status after the criminal justice social worker he usually checks on him at his trailer found him obtunded on his sofa. Patient was intubated for GCS of 3 and admitted to the ICU. On presentation he also had a hypertensive emergency with BP of 218/124 which is now resolved. He was weaned off of sedation this morning around [address] head and CTA negative for any acute infarct, hemorrhage or LVO. Currently pending stroke protocol and echocardiogram. In-house neurology Dr Torres was consulted. Once workup is negative anticipate discharge within 24 hours. Plan of care discussed with Attending Dr. Lashell Rocha MD PGY 2 Disclaimer: This note was dictated by speech recognition. Minor errors in office nurse practitioner may be present due to voice recognition software. Documentation for date of: 03/03/25 Subjective Subjective Interval history: Patient is a 59 year old male admitted to ICU for work up of acute encephalopathy and down-graded to floors after he was extubated today. Patient was originally brought in by EMS for altered mental status after the criminal justice social worker that usually checks in on him at his trailer found him obtunded on his sofa. Patient was intubated due to a GCS of 3 and admitted to the ICU. On presentation he also had a hypertensive emergency with BP of 218/124 which is now resolved. He was weaned off of sedation this morning around [address] head and CTA negative for any acute infarct, hemorrhage or LVO. Currently pending stroke protocol and echocardiogram. In-house neurology Dr Torres was consulted. Once workup is negative anticipate discharge within 24 hours. Exam Vital Signs Temp Pulse Resp BP Pulse Ox O2 Del Method O2 Flow Rate 99.3 F 96 20 172/99 H 89 L Mechanical Ventilation 3 03/03/25 08:00 03/03/25 14:31 03/03/25 14:31 03/03/25 14:31 03/03/25 14:31 03/03/25 08:00 03/03/25 09:28 FiO2 50 03/03/25 09:19 Narrative Exam General: No acute distress; A&Ox3 Skin: Seborrheic dermatitis of the face and head. Warm, dry, intact, no obvious rash; tattoos, poor toenail hygiene HENT: NCAT, EOMI/PERRL, not icteric. External ears normal. No rhinorrhea. Moist mucous membranes Cardiovascular: Slightly bradycardic rate, regular rhythm, no murmur, +S1/S2. Respiratory: Lungs CTAB GI: Soft, nontender, non-distended. No guarding or rebound tenderness. : No suprapubic tenderness. No flank tenderness bilaterally. Extremities: no edema, no cyanosis, no clubbing. Extremity pulses present Neuro: full strength in all extremities, sensation was globally intact and equal, cranial nerves 2-12 were all intact, patient's cerebellar function was intact as well with no focal neuro deficits noted, patient was A&Ox3 Psychiatric: Cooperative, appropriate affect. Objective Labs 03/04/25 04:30 03/04/25 04:30 Labs: Laboratory Results - last 24 hr 03/02/25 03/02/25 03/02/25 00:37 16:50 17:12 WBC 14.6 H RBC 5.98 H Hgb 18.7 H* Hct 53.2 H MCV 89 MCH 31.3 MCHC 35.2 RDW Std Deviation 41.4 Plt Count 360 Neut % (Auto) 68 Lymph % (Auto) 24 [place] % (Auto) 7 Eos % (Auto) 1 Baso % (Auto) 1 Neut # (Auto) 9.9 H Lymph # (Auto) 3.6 [place] # (Auto) 1.0 H Eos # (Auto) 0.1 Baso # (Auto) 0.1 Immature Gran # (Auto) 0.05 H Absolute Nucleated RBC 0.00 Immature Gran % 0 Nucleated RBC % 0 PT 11.2 INR 1.1 APTT 29.1 Puncture Site Not Performed. ABG pH 7.28 L ABG pCO2 57 H ABG pO2 418 H ABG HCO3 27 H ABG O2 Saturation 100 H ABG Base Excess -2 FiO2 21 Sodium 142 Potassium 4.3 Chloride 107 Carbon Dioxide 24.1 Anion Gap 11 BUN 12 Creatinine 1.1 Estim Creat Clear Calc 88.4 eGFR > 60 BUN/Creatinine Ratio 11 L Glucose [address] Glu mg/dL Hemoglobin A1c Calculated Osmolality 284 Calcium 9.8 Corrected Calcium 9.8 Phosphorus Magnesium 1.8 Total Bilirubin 0.7 AST 19 ALT 11 Alkaline Phosphatase 112 Ammonia Total Creatine Kinase Troponin I < 0.020 B-Natriuretic Peptide 25 Total Protein 7.8 Albumin 5.3 H Globulin 2.5 Albumin/Globulin Ratio 2.1 Triglycerides Cholesterol LDL Cholesterol, Calc HDL Cholesterol Cholesterol/HDL Ratio TSH Ur Collection Type Urine Color Urine Clarity Urine pH Ur Specific [place] Urine Protein Urine Glucose (UA) Urine Ketones Urine Blood Urine Nitrite Urine Bilirubin Urine Urobilinogen (Auto) Ur Leukocyte Esterase Urine RBC Urine WBC Ur Squamous Epith Cells Urine Bacteria Hyaline Casts Ur Culture Indicated? Urine Opiates Screen Urine Fentanyl Screen Ur Barbiturates Screen U Amphetamin/Meth Scrn U Benzodiazepines Scrn U Cocaine Metab Screen U Marijuana (THC) Screen Ethyl Alcohol < 3.0 Cancelled 03/02/25 03/02/25 03/02/25 18:49 21:24 22:34 WBC 13.8 H RBC 5.09 Hgb 15.5 D Hct 46.2 MCV 91 MCH 30.5 MCHC 33.5 RDW Std Deviation 42.5 Plt Count 307 D Neut % (Auto) 77 Lymph % (Auto) 16 [place] % (Auto) 6 Eos % (Auto) 0 Baso % (Auto) 0 Neut # (Auto) 10.6 H Lymph # (Auto) 2.2 [place] # (Auto) 0.9 H Eos # (Auto) 0.0 Baso # (Auto) 0.1 Immature Gran # (Auto) 0.05 H Absolute Nucleated RBC 0.00 Immature Gran % 0 Nucleated RBC % 0 PT INR APTT Puncture Site Left Radial ABG pH 7.35 ABG pCO2 45 D ABG pO2 162 H D ABG HCO3 25 ABG O2 Saturation 100 H ABG Base Excess -1 FiO2 60 Sodium 142 Potassium 5.1 D Chloride 110 H Carbon Dioxide 22.9 Anion Gap 9 BUN 16 Creatinine 1.1 Estim Creat Clear Calc 88.4 eGFR > 60 BUN/Creatinine Ratio 15 [address]ucose [address] Glu mg/dL Hemoglobin A1c Calculated Osmolality 286 Calcium 8.3 D Corrected Calcium 8.3 L D Phosphorus 4.2 Magnesium Total Bilirubin AST ALT Alkaline Phosphatase Ammonia 66 H Total Creatine Kinase Troponin I B-Natriuretic Peptide Total Protein Albumin 4.3 D Globulin Albumin/Globulin Ratio Triglycerides Cholesterol LDL Cholesterol, Calc HDL Cholesterol Cholesterol/HDL Ratio TSH Ur Collection Type Catheter Urine Color Yellow Urine Clarity Clear Urine pH 6.0 Ur Specific [place] 1.029 Urine Protein 1+ A Urine Glucose (UA) Negative Urine Ketones 1+ A Urine Blood Negative Urine Nitrite Negative Urine Bilirubin Negative Urine Urobilinogen (Auto) 2.0 Ur Leukocyte Esterase Negative Urine RBC 2 Urine WBC 1 Ur Squamous Epith Cells 0 Urine Bacteria None Hyaline Casts < 1 Ur Culture Indicated? Not Indicated Urine Opiates Screen Negative Urine Fentanyl Screen Positive A Ur Barbiturates Screen Negative U Amphetamin/Meth Scrn Negative U Benzodiazepines Scrn Positive A U Cocaine Metab Screen Negative U Marijuana (THC) Screen Positive A Ethyl Alcohol Cancelled 03/03/25 03/03/25 02:14 05:11 WBC 12.5 H RBC 4.94 Hgb 15.4 Hct 45.3 MCV 92 MCH 31.2 MCHC 34.0 RDW Std Deviation 44.5 H Plt Count 295 Neut % (Auto) 62 Lymph % (Auto) 27 [place] % (Auto) 9 Eos % (Auto) 1 Baso % (Auto) 1 Neut # (Auto) 7.8 H Lymph # (Auto) 3.4 [place] # (Auto) 1.1 H Eos # (Auto) 0.2 Baso # (Auto) 0.1 Immature Gran # (Auto) 0.06 H Absolute Nucleated RBC 0.00 Immature Gran % 1 H Nucleated RBC % 0 PT INR APTT Puncture Site Right Radial ABG pH 7.26 L ABG pCO2 54 H ABG pO2 163 H ABG HCO3 24 ABG O2 Saturation 100 H ABG Base Excess -4 L FiO2 50 Sodium 144 Potassium 3.9 D Chloride 111 H Carbon Dioxide 23.6 Anion Gap 9 BUN 13 Creatinine 1.0 Estim Creat Clear Calc 97.2 eGFR > 60 BUN/Creatinine Ratio [address] Glu mg/dL 111 Hemoglobin A1c 5.5 Calculated Osmolality 286 Calcium 8.7 Corrected Calcium 8.7 Phosphorus 3.5 Magnesium 1.7 Total Bilirubin AST ALT Alkaline Phosphatase Ammonia Total Creatine Kinase 42 Troponin I B-Natriuretic Peptide Total Protein Albumin 4.0 Globulin Albumin/Globulin Ratio Triglycerides 121 Cholesterol 135 LDL Cholesterol, Calc 72 HDL Cholesterol 39 L Cholesterol/HDL Ratio 3.5 L TSH 1.53 Ur Collection Type Urine Color Urine Clarity Urine pH Ur Specific [place] Urine Protein Urine Glucose (UA) Urine Ketones Urine Blood Urine Nitrite Urine Bilirubin Urine Urobilinogen (Auto) Ur Leukocyte Esterase Urine RBC Urine WBC Ur Squamous Epith Cells Urine Bacteria Hyaline Casts Ur Culture Indicated? Urine Opiates Screen Urine Fentanyl Screen Ur Barbiturates Screen U Amphetamin/Meth Scrn U Benzodiazepines Scrn U Cocaine Metab Screen U Marijuana (THC) Screen Ethyl Alcohol ABG Interpretation ABG results: 03/02/25 03/02/25 03/03/25 17:12 22:34 02:14 ABG pH 7.28 L 7.35 7.26 L ABG pCO2 57 H 45 D 54 H ABG pO2 418 H 162 H D 163 H ABG HCO3 27 H 25 24 ABG O2 Saturation 100 H 100 H 100 H ABG Base Excess -2 -1 -4 L Quality Measures Quality Measures stroke Suspected type of Stroke: Unknown at this time Tenecteplase given: Reason(s) Tenecteplase not given: Outside the time window not given Rehab services: PT evaluation ordered and Speech Language Pathology eval ordered VTE Prophylaxis: not indicated Antithrombotic by day 2:: not indicated (describe) Statin ordered: <75 y/o high intensity dose Anticoagulation ordered for A-fib or flutter (current or hx): not indicated Assessment & Plan Assessment Current Active Medications: Generic Name Dose Route Start Last Admin Trade Name Freq PRN Reason Stop Dose Admin Aspirin 81 mg 03/03/25 09:45 03/03/25 10:39 Aspirin 81 Mg Chew PO 04/02/25 09:44 81 mg QDAY GARCIA Administration Atorvastatin Calcium 40 mg 03/03/25 21:00 Atorvastatin Calcium 20 Mg Tablet PO 04/02/25 20:59 HS GARCIA Enoxaparin Sodium 40 mg 03/03/25 21:00 Enoxaparin Sod Inj 40 Mg/0.4 Ml Syringe SC 03/17/25 20:59 QPM GARCIA Famotidine 20 mg 03/03/25 09:00 03/03/25 09:25 Famotidine Inj 10 Mg/Ml Vial 2 Ml IVP 04/02/25 08:59 20 mg Q12HR GARCIA Administration Ketoconazole 0 gm 03/03/25 14:45 Ketoconazole Cr 2% 15 Gm Tube TOP 04/02/25 14:44 BID GARCIA Ondansetron HCl 4 mg 03/02/25 21:03 Ondansetron Inj 2 Mg/Ml Inj 2 Ml IVP 04/01/25 21:02 Q6H PRN NAUSEA OR VOMITING Protocol Plan Patient is a 59 year old male admitted to ICU for work up of acute encephalopathy and down-graded to floors after he was extubated today. Patient was originally brought in by EMS for altered mental status after the criminal justice social worker that usually checks in on him at his trailer found him obtunded on his sofa. Patient was intubated due to a GCS of 3 and admitted to the ICU. On presentation he also had a hypertensive emergency with BP of 218/124 which is now resolved. He was weaned off of sedation this morning around 7 AM [address] head and CTA negative for any acute infarct, hemorrhage or LVO. Currently pending stroke protocol and echocardiogram. In-house neurology Dr Torres was consulted. Once workup is negative anticipate discharge within 24 hours. #CVA vs. TIA Originally BIBA on 03/02/25 and presented with GCS of 3, requiring intubation Also presented with hypertensive emergency of BP 218/214 After being weaned off of sedation and extubated on 03/03, no signs of residual focal neurological deficits At baseline, patient is reported to be able to carry out ADLs without assistance DDx: PRES syndrome, hypertensive encephalopathy, stroke/TIA Dx: -03/[address] negative for hemorrhage, mass effect, or midline shift -03/02 head/neck CTA negative for significant arterial stenoses or LVOs -03/03 brain MRI w/ MRA was negative for signs of hemorrhagic or ischemic stroke but did show some scattered punctate foci of increased signal in the white matter that could represent demyelinating disease as well as findings possibly suggestive of hypoxic ischemic encephalopathy -03/03 echocardiogram ordered, showed ____ -03/03 EEG awake and drowsy ordered, showed ___ Rx: -Continue PO aspirin 81 mg qD -Continue PO atorvastatin 40 mg qHS -Neurology (Dr. Torres) consulted, appreciate recommendations -Once stroke work-up comes back negative, discharge is anticipated within the next 24 hours #Acute metabolic encephalopathy, resolved Originally BIBA on 03/02/25 and presented with GCS of 3, requiring intubation After being weaned off of sedation and extubated on 03/03, no signs of residual focal neurological deficits Rx: -See #CVA vs. TIA #Hypertensive emergency, resolved Presented with hypertensive emergency of BP 218/214 Patient is now normotensive Rx: -IV hydralazine 10 mg q4HR prn for SBP>180 or DBP>120 #Leukocytosis, down-trending Admission WBC 14.6, afebrile 03/02 WBC 13.8 03/03 WBC 12.5 Likely reactive in nature Rx: -CTM #Seborrheic dermatitis On physical exam, patient exhibits some greasy scaling with red, inflamed skin on the face Rx: -Topical ketoconazole BID Hospital Management: Disposition: downgraded to floors today, pending MRI and echocardiogram as per stroke protocol, once negative, anticipate discharge within 24 hours Diet: Carbohydrate Consistent GI Prophylaxis: IV Pepcid 20 mg q12HR Bowel Prophylaxis: None DVT Prophylaxis: SC Lovenox 40 mg qPM CODE STATUS: Full Code I have examined the patient and conferred with my attending, Dr. Lobo, and my senior resident, Dr. Rocha, regarding them. Sylvester Licona DO PGY-1 Internal Medicine Attending Provider Attestation/Addendum I have discussed and was present for the essential components of the history, physical examination, diagnosis, and treatment plan with the resident. I agree with the patient's care as documented by the resident and amended herein by me. Shaun Lobo DO. Although this document has been carefully reviewed, there may still be some phonetic and other typographical errors. These errors are purely grammatical due to imperfections in the software program and should not be construed in any way to compromise the substance of the patient's medical care during this visit.
[2025-03-03] MEDS: KETOCONAZOLE CR 2% 15 GM TUBE TOP ×2 (15:51→20:07)
[2025-03-03] MEDS: hydrALAZINE INJ 20 MG/ML VIAL 5 MG IVP (17:06)
--- NOTE | 2025-03-03 17:15 | ESPR_ITS ---
Documentation for date of: 03/03/25 Subjective Subjective Interval history: Patient examined at bedside. Vital stable, WBCs downtrending, electrolytes in normal limits. He was extubated this morning. A1c 5.5, TG 121, cholesterol 135, LDL 72, HDL 39, TSH 1.53. Physical exam no new or residual neurodeficits noted. Patient endorses smoking history. Smoking for many years approximately 1 pack/day. Likely initial presenting symptoms due to hypertensive emergency presenting with stroke like symptoms. On admission blood pressure at 218/124, tachycardia 130s. MRI is pending. Continue aspirin and atorvastatin. Plan for EEG as patient was found unresponsive and could have been post ictal. Exam Vital Signs Temp Pulse Resp BP Pulse Ox O2 Del Method O2 Flow Rate 99.1 F 69 10 L 165/90 H 96 Nasal Cannula 3 03/03/25 16:00 03/03/25 17:06 03/03/25 16:30 03/03/25 17:06 03/03/25 16:30 03/03/25 16:00 03/03/25 09:28 FiO2 50 03/03/25 09:19 Narrative Exam General: Middle age male, irritable, eager to leave. No acute distress HEENT: NCAT, No JVD noted. Mucosa moist. Pupils are equal and reactive to light bilaterally Cardiovascular: Normal S1 and S2. Regular rate and rhythm. Respiratory: Lungs are clear to auscultation bilaterally. No wheezing or crackles heard. Abdomen: Soft, nontender, not distended, normal bowel sounds. Skin: Warm to touch, dry, no rashes noted. Various tattoos Musculoskeletal: No gross injuries. Able to move all 4 extremities. No pitting edema Neuro: Alert and oriented x3. Cranial nerves: II through XII grossly intact. Speech and language: Normal with no dysarthria or dysphasia. Motor system: Tone and bulk: Normal: Strength: 5 out of 5 in all 4 extremities; No pronator drift noted. Deep tendon reflexes: 2+ bilaterally symmetrical. Plantar reflex: Downgoing bilaterally. Sensory system: Intact to all modalities of sensation bilaterally. Coordination: Intact to [id number] and dmob-spma-xtrj test bilaterally. No ataxia, no dysmetria, or dysdiadochokinesia noted. No intention tremors noted. Gait: Not tested. No signs of meningeal irritation noted. Psych: Normal affect and mood Objective Labs 10/23/25 04:30 03/04/25 04:30 Labs: Laboratory Results - last 24 hr 03/02/25 03/02/25 03/02/25 00:37 16:50 17:12 WBC 14.6 H RBC 5.98 H Hgb 18.7 H* Hct 53.2 H MCV 89 MCH 31.3 MCHC 35.2 RDW Std Deviation 41.4 Plt Count 360 Neut % (Auto) 68 Lymph % (Auto) 24 [place] % (Auto) 7 Eos % (Auto) 1 Baso % (Auto) 1 Neut # (Auto) 9.9 H Lymph # (Auto) 3.6 [place] # (Auto) 1.0 H Eos # (Auto) 0.1 Baso # (Auto) 0.1 Immature Gran # (Auto) 0.05 H Absolute Nucleated RBC 0.00 Immature Gran % 0 Nucleated RBC % 0 PT 11.2 INR 1.1 APTT 29.1 Puncture Site Not Performed. ABG pH 7.28 L ABG pCO2 57 H ABG pO2 418 H ABG HCO3 27 H ABG O2 Saturation 100 H ABG Base Excess -2 FiO2 21 Sodium 142 Potassium 4.3 Chloride 107 Carbon Dioxide 24.1 Anion Gap 11 BUN 12 Creatinine 1.1 Estim Creat Clear Calc 88.4 eGFR > 60 BUN/Creatinine Ratio 11 L Glucose [address] Glu mg/dL Hemoglobin A1c Calculated Osmolality 284 Calcium 9.8 Corrected Calcium 9.8 Phosphorus Magnesium 1.8 Total Bilirubin 0.7 AST 19 ALT 11 Alkaline Phosphatase 112 Ammonia Total Creatine Kinase Troponin I < 0.020 B-Natriuretic Peptide 25 Total Protein 7.8 Albumin 5.3 H Globulin 2.5 Albumin/Globulin Ratio 2.1 Triglycerides Cholesterol LDL Cholesterol, Calc HDL Cholesterol Cholesterol/HDL Ratio TSH Ur Collection Type Urine Color Urine Clarity Urine pH Ur Specific [place] Urine Protein Urine Glucose (UA) Urine Ketones Urine Blood Urine Nitrite Urine Bilirubin Urine Urobilinogen (Auto) Ur Leukocyte Esterase Urine RBC Urine WBC Ur Squamous Epith Cells Urine Bacteria Hyaline Casts Ur Culture Indicated? Urine Opiates Screen Urine Fentanyl Screen Ur Barbiturates Screen U Amphetamin/Meth Scrn U Benzodiazepines Scrn U Cocaine Metab Screen U Marijuana (THC) Screen Ethyl Alcohol < 3.0 Cancelled 03/02/25 03/02/25 03/02/25 18:49 21:24 22:34 WBC 13.8 H RBC 5.09 Hgb 15.5 D Hct 46.2 MCV 91 MCH 30.5 MCHC 33.5 RDW Std Deviation 42.5 Plt Count 307 D Neut % (Auto) 77 Lymph % (Auto) 16 [place] % (Auto) 6 Eos % (Auto) 0 Baso % (Auto) 0 Neut # (Auto) 10.6 H Lymph # (Auto) 2.2 [place] # (Auto) 0.9 H Eos # (Auto) 0.0 Baso # (Auto) 0.1 Immature Gran # (Auto) 0.05 H Absolute Nucleated RBC 0.00 Immature Gran % 0 Nucleated RBC % 0 PT INR APTT Puncture Site Left Radial ABG pH 7.35 ABG pCO2 45 D ABG pO2 162 H D ABG HCO3 25 ABG O2 Saturation 100 H ABG Base Excess -1 FiO2 60 Sodium 142 Potassium 5.1 D Chloride 110 H Carbon Dioxide 22.9 Anion Gap 9 BUN 16 Creatinine 1.1 Estim Creat Clear Calc 88.4 eGFR > 60 BUN/Creatinine Ratio 15 [address]ucose [address] Glu mg/dL Hemoglobin A1c Calculated Osmolality 286 Calcium 8.3 D Corrected Calcium 8.3 L D Phosphorus 4.2 Magnesium Total Bilirubin AST ALT Alkaline Phosphatase Ammonia 66 H Total Creatine Kinase Troponin I B-Natriuretic Peptide Total Protein Albumin 4.3 D Globulin Albumin/Globulin Ratio Triglycerides Cholesterol LDL Cholesterol, Calc HDL Cholesterol Cholesterol/HDL Ratio TSH Ur Collection Type Catheter Urine Color Yellow Urine Clarity Clear Urine pH 6.0 Ur Specific [place] 1.029 Urine Protein 1+ A Urine Glucose (UA) Negative Urine Ketones 1+ A Urine Blood Negative Urine Nitrite Negative Urine Bilirubin Negative Urine Urobilinogen (Auto) 2.0 Ur Leukocyte Esterase Negative Urine RBC 2 Urine WBC 1 Ur Squamous Epith Cells 0 Urine Bacteria None Hyaline Casts < 1 Ur Culture Indicated? Not Indicated Urine Opiates Screen Negative Urine Fentanyl Screen Positive A Ur Barbiturates Screen Negative U Amphetamin/Meth Scrn Negative U Benzodiazepines Scrn Positive A U Cocaine Metab Screen Negative U Marijuana (THC) Screen Positive A Ethyl Alcohol Cancelled 03/03/25 03/03/25 02:14 05:11 WBC 12.5 H RBC 4.94 Hgb 15.4 Hct 45.3 MCV 92 MCH 31.2 MCHC 34.0 RDW Std Deviation 44.5 H Plt Count 295 Neut % (Auto) 62 Lymph % (Auto) 27 [place] % (Auto) 9 Eos % (Auto) 1 Baso % (Auto) 1 Neut # (Auto) 7.8 H Lymph # (Auto) 3.4 [place] # (Auto) 1.1 H Eos # (Auto) 0.2 Baso # (Auto) 0.1 Immature Gran # (Auto) 0.06 H Absolute Nucleated RBC 0.00 Immature Gran % 1 H Nucleated RBC % 0 PT INR APTT Puncture Site Right Radial ABG pH 7.26 L ABG pCO2 54 H ABG pO2 163 H ABG HCO3 24 ABG O2 Saturation 100 H ABG Base Excess -4 L FiO2 50 Sodium 144 Potassium 3.9 D Chloride 111 H Carbon Dioxide 23.6 Anion Gap 9 BUN 13 Creatinine 1.0 Estim Creat Clear Calc 97.2 eGFR > 60 BUN/Creatinine Ratio [address] Glu mg/dL 111 Hemoglobin A1c 5.5 Calculated Osmolality 286 Calcium 8.7 Corrected Calcium 8.7 Phosphorus 3.5 Magnesium 1.7 Total Bilirubin AST ALT Alkaline Phosphatase Ammonia Total Creatine Kinase 42 Troponin I B-Natriuretic Peptide Total Protein Albumin 4.0 Globulin Albumin/Globulin Ratio Triglycerides 121 Cholesterol 135 LDL Cholesterol, Calc 72 HDL Cholesterol 39 L Cholesterol/HDL Ratio 3.5 L TSH 1.53 Ur Collection Type Urine Color Urine Clarity Urine pH Ur Specific [place] Urine Protein Urine Glucose (UA) Urine Ketones Urine Blood Urine Nitrite Urine Bilirubin Urine Urobilinogen (Auto) Ur Leukocyte Esterase Urine RBC Urine WBC Ur Squamous Epith Cells Urine Bacteria Hyaline Casts Ur Culture Indicated? Urine Opiates Screen Urine Fentanyl Screen Ur Barbiturates Screen U Amphetamin/Meth Scrn U Benzodiazepines Scrn U Cocaine Metab Screen U Marijuana (THC) Screen Ethyl Alcohol ABG Interpretation ABG results: 03/02/25 03/02/25 03/03/25 17:12 22:34 02:14 ABG pH 7.28 L 7.35 7.26 L ABG pCO2 57 H 45 D 54 H ABG pO2 418 H 162 H D 163 H ABG HCO3 27 H 25 24 ABG O2 Saturation 100 H 100 H 100 H ABG Base Excess -2 -1 -4 L Quality Measures Quality Measures stroke Suspected type of Stroke: Unknown at this time Tenecteplase given: Reason(s) Tenecteplase not given: Outside the time window not given Rehab services: PT evaluation ordered and Speech Language Pathology eval ordered VTE Prophylaxis: pharmaceutical Antithrombotic by day 2:: ordered and not indicated (describe) Statin ordered: <75 y/o high intensity dose Anticoagulation ordered for A-fib or flutter (current or hx): not indicated Assessment & Plan Assessment Current Active Medications: Generic Name Dose Route Start Last Admin Trade Name Freq PRN Reason Stop Dose Admin Aspirin 81 mg 03/03/25 09:45 03/03/25 10:39 Aspirin 81 Mg Chew PO 04/02/25 09:44 81 mg QDAY GARCIA Administration Atorvastatin Calcium 40 mg 03/03/25 21:00 Atorvastatin Calcium 20 Mg Tablet PO 04/02/25 20:59 HS GARCIA Enoxaparin Sodium 40 mg 03/03/25 21:00 Enoxaparin Sod Inj 40 Mg/0.4 Ml Syringe SC 03/17/25 20:59 QPM GARCIA Famotidine 20 mg 03/03/25 09:00 03/03/25 09:25 Famotidine Inj 10 Mg/Ml Vial 2 Ml IVP 04/02/25 08:59 20 mg Q12HR GARCIA Administration Ketoconazole 0 gm 03/03/25 14:45 03/03/25 15:51 Ketoconazole Cr 2% 15 Gm Tube TOP 04/02/25 14:44 15 gram BID GARCIA Administration Midazolam HCl 2 mg 03/03/25 16:58 Midazolam Inj 1 Mg/Ml Vial 2 Ml IVP 03/08/25 16:57 X1 PRN FOr MRI if agitated Ondansetron HCl 4 mg 03/02/25 21:03 Ondansetron Inj 2 Mg/Ml Inj 2 Ml IVP 04/01/25 21:02 Q6H PRN NAUSEA OR VOMITING Protocol Plan 59-year-old male with past medical history of primary hypertension, who was brought in by ambulance after being found unresponsive in his trailer. GCS 3. Neurology consulted for encephalopathy. #Acute encepholapthy-improved #Hypertensive emergency-resolved #HTN stroke vs hypertensive emergency. Patient states that he does not always take his anti hypertensive agents. As per ED documentation, patient was brought in by paramedics with a GCS of 3, teleneuro was consulted after stroke alert was called, and patient was intubated to protect airway. BP on admission was 218/114. Utox positive for THC. UA negative. A1c 5.5, TG 121, cholesterol 135, LDL 72, HDL 39, TSH 1.53. NIHSS score 24, CT head/CTA head neck negative. -MRI pending -echo with bubble pending -aspirin 81 mg daily -atorvastatin 40mg daily -neuro checks q4hr -EEG pending The patient's management plan was discussed with my attending physician Dr. Torres. Deisy Aguilar, PGY-2 Attending Provider Attestation/Addendum I personally have seen and examined the patient at the bedside and I agreed with resident's findings, assessment and plan of care. DD: stroke/HTN urgency FU with MRI, echo with bubble study; continue with aspirin 81 mg and atorvastatin 40mg daily
[2025-03-03] MEDS: ATORVASTATIN CALCIUM 20 MG TABLET 40 MG PO (20:04)
[2025-03-03] MEDS: ENOXAPARIN SOD INJ 40 MG/0.4 ML SYRINGE SC (20:04)
[2025-03-04] VITALS (11 sets, daily range): BP systolic 111–132; BP diastolic 66–108; PULSE 53–82; RESP 12–18; TEMP 36.6–36.7; O2SAT 85–99; BMI 28.2
--- NOTE | 2025-03-04 02:04 | RESP.EEG ---
EEG COMPLETED AND READY FOR REVIEW.
[2025-03-04 06:14] LABS: Basophils # (Auto) 0.1 Thou/mm3 (0.0-0.2); Basophils % (Auto) 1 % (0-2.5); Eosinophils # (Auto) 0.1 Thou/mm3 (0.0-0.5); Eosinophils % (Auto) 1 % (0-10); Hematocrit 46.5 % (41.0-53.0); Hemoglobin 15.9 g/dL (13.5-16.0); Immature Granulocytes Auto 0.03 Thou/mm3 (0.00-0.00); Lymphocytes # (Auto) 2.3 Thou/mm3 (1.0-4.8); Lymphocytes % (Auto) 23 % (10-50); Mean Corpuscular HGB Conc 34.2 g/dl (31.0-37.0); Mean Corpuscular Hemoglobin 31.2 pg (25.0-35.0); Mean Corpuscular Volume 91 fL (80-100); Monocytes # (Auto) 0.8 Thou/mm3 (0.0-0.8); Monocytes % (Auto) 8 % (0-12); Neutrophils # (Auto) 6.8 Thou/mm3 (1.8-7.7); Neutrophils % (Auto) 67 % (37-80); Nucleated Red Blood Cell # 0.00 Thou/mm3 (0.00-0.00); Nucleated Red Blood Cell % 0 /100 WBC (0); Platelet Count 231 Thou/mm3 (140-440); RDW Standard Deviation 41.8 fL (35.1-43.9); Red Blood Count 5.09 Miln/mm3 (4.50-5.90); White Blood Count 10.1 Thou/mm3 (3.8-10.6)
[2025-03-04 06:35] LABS: Albumin, Serum 4.1 gm/dL (3.5-5.0); Anion Gap 13 (7-16); BUN/Creatinine Ratio 15 Ratio (12-20); Blood Urea Nitrogen 15 mg/dL (9-23); Calcium 8.7 mg/dL (8.3-10.6); Calcium (Corrected) 8.7 mg/dL (8.5-10.1); Carbon Dioxide 26.1 mMol/L (20.0-31.0); Chloride 104 mMol/L (98-107); Creatinine (Component) 1.0 mg/dL (0.6-1.3); Estimated Creatinine Clearance 97.2 mL/min (>60); Glucose 78 mg/dL (74-106); Magnesium 2.0 mg/dL (1.6-2.6); Osmolality,Calculated 284 (275-295); Phosphorous 3.0 mg/dL (2.4-5.1); Potassium 5.1 mMol/L (3.4-5.1); Sodium 143 mMol/L (136-145); eGFR > 60 See Note
[2025-03-04] MEDS: ASPIRIN 81 MG CHEW PO (09:17)
[2025-03-04] MEDS: FAMOTIDINE INJ 10 MG/ML VIAL 2 ML 20 MG IVP (09:17)
[2025-03-04] MEDS: NICOTINE PATCH 21 MG/24 HR PATCH.TD24 TOP (09:17)
[2025-03-04] MEDS: KETOCONAZOLE CR 2% 15 GM TUBE TOP (09:17)
--- NOTE | 2025-03-04 11:44 | ESDS_ITS ---
Planned Discharge Date 03/04/25 DS: Providers Provider Date of admission: 03/02/25 21:03 Primary care physician: Physician No Primary/Family Admitting Provider: Danish Stinson MD Attending Provider on Admission: Harmeet Lobo DO Consults: 03/02/25 16:55 Consult to Neurology / Tele-Neurology Routine Comment: Consulting Provider: [facility] 03/02/25 21:07 Consult to Neurology / Tele-Neurology Routine Comment: Consulting Provider: Kyler Torres 03/03/25 13:18 Referral Speech Therapy Routine Comment: stroke r/o; swallow study; s/p extubation Attending Provider on DC: Harmeet Lobo DO Discharging Provider: Harmeet Lobo DO DS: Diagnosis Problem List Completed Was Problem List Reviewed/Reconciled?: Yes Hospital Course Hospital Course Hospital course: Patient is a 59 year old male admitted to ICU for work up of acute encephalopathy and down-graded to floors after he was extubated. Patient was originally brought in by EMS for altered mental status after the social worker delinquency prevention that usually checks in on him at his trailer found him obtunded on his sofa. In the ED, patient was found to have blood pressure > 200/120, tachycardia HR 103-135 bpm, tachypnea RR 28 and low O2 sats of 91% on room air. Bedside blood glucose was 145 around the time of intubation. Initial laboratory workup remarkable for leukocytosis WBC 14.6 neutrophil predominant, hemoconcentration Hb 18.7 and hematocrit 53.2, CHEM panel within normal limits and mildly elevated albumin 5.3. Patient's ABG showed pH 7.28, CO2 57 and bicarb 24 on CHEM panel. Urinalysis showed 1+ protein, 1+ ketone, otherwise sterile. Drug screen showed positive results for fentanyl, benzodiazepine and marijuana, however these are not reliable as sample was taken after medications were given in the ED. Per ED physician, patient's mechanical ventilation settings were changed to improve ABG levels. ED consulted teleneurology who recommended blood pressure control with labetalol as needed, with goal 15% reduction in the next 24 hours. NIHSS 24, premorbid modified [place] scale unable to assess at the time of teleneuro evaluation. Patient was not a candidate for TNK, is outside window. On imaging, CT head and CTA head and neck negative for any acute findings. Patient to be admitted to ICU for work up of acute encephalopathy, on MV. Pending stroke r/o. In-house neurologist Dr. Torres is consulted for further recommendations. MR stroke protocol ordered for further evaluation. Patient was intubated due to a GCS of 3 and admitted to the ICU. On pre sentation he also had a hypertensive emergency with BP of 218/124 which is now resolved. He was weaned off of sedation this morning around [address] head and CTA negative for any acute infarct, hemorrhage or LVO. In-house neurology Dr Torres was consulted. Stroke work up was negative. EEG was normal, MRI showed some findings of hypoxic ischemia. Patient was alert and oriented, VSS, cleared to discharge home. Discharge Instructions: - You have been started on a blood pressure, cholesterol pill and aspirin. Take as below - Check your blood pressure daily and make a record to carry to your primary doctor - Stop smoking. Use nicotine patch - Follow up with your primary care physician within 1 week of discharge. If you do not have a primary care physician, please follow up with the [facility] Residents clinic ([phone]) ? If you experience any new, worsening or persistent symptoms either call your primary doctor, or dial 911 or present to the emergency department. #CVA vs. TIA #Acute metabolic encephalopathy, resolved #Hypertensive emergency, resolved #Leukocytosis, down-trending #Seborrheic dermatitis Senior Resident Attestation: I have discussed the case with supervising physician and transportation logistics internship physician involved in the care of patient. I personally saw and examined patient and discussed the assessment and plan with the entire medical team, including attending. I agree with assessment and plan as documented above The patient's plan was discussed with attending Dr. Lashell Ewing MD PGY2 Internal Medicine Status at Discharge Functional status at discharge: independent ambulation Overall status at discharge: patient is back to baseline Time Spent with Patient Time attestation: Total time spent providing and/or coordinating discharge services: Time spent: Greater than 30 minutes Exam Vital Signs Temp Pulse Resp BP Pulse Ox O2 Del Method O2 Flow Rate 97.9 F 57 L 18 120/88 H 99 Nasal Cannula 3 03/04/25 04:00 03/04/25 04:00 03/04/25 04:00 03/04/25 04:00 03/04/25 04:00 03/03/25 16:00 03/03/25 09:28 FiO2 50 03/03/25 09:19 Narrative Exam General: No acute distress; A&Ox3 Skin: Seborrheic dermatitis of the face and head. Warm, dry, intact, no obvious rash; tattoos, poor toenail hygiene HENT: NCAT, EOMI/PERRL, not icteric. External ears normal. No rhinorrhea. Moist mucous membranes Cardiovascular: Slightly bradycardic rate, regular rhythm, no murmur, +S1/S2. Respiratory: Lungs CTAB GI: Soft, nontender, non-distended. No guarding or rebound tenderness. : No suprapubic tenderness. No flank tenderness bilaterally. Extremities: no edema, no cyanosis, no clubbing. Extremity pulses present Neuro: full strength in all extremities, sensation was globally intact and equal, cranial nerves 2-12 were all intact, patient's cerebellar function was intact as well with no focal neuro deficits noted, patient was A&Ox3 Psychiatric: Cooperative, appropriate affect. Discharge Plan Plan Patient Disposition: HOME (Self Care) Patient condition on transfer: Stable Care Plan Goals: - You have been started on a blood pressure, cholesterol pill and aspirin. Take as below - Check your blood pressure daily and make a record to carry to your primary doctor - Stop smoking. Use nicotine patch - Follow up with your primary care physician within 1 week of discharge. If you do not have a primary care physician, please follow up with the [facility] Residents clinic ([phone]) ? If you experience any new, worsening or persistent symptoms either call your primary doctor, or dial 911 or present to the emergency department. Prescriptions/Referrals Prescriptions/Med Rec: New nicotine 21 mg/24 hr patch 24 hour 21 mg topical QDAY 7 Days Qty: 7 0RF atorvastatin [Lipitor] 40 mg tablet 40 mg PO QDAY 30 Days Qty: 30 3RF aspirin 81 mg tablet 81 mg PO QDAY 30 Days Qty: 30 3RF losartan 25 mg tablet 25 mg PO QDAY 30 Days Qty: 30 1RF (DME) blood pressure monitor [Blood Pressure Kit] Kit See Rx Instructions .Route Qty: 1 0RF Rx Instructions: As directed Referrals: [facility] [Outside] No Primary/Family,Physician [Primary Care Provider] Patient/Caregiver Discharge Instructions Print Language: Grenadian Stand Alone Forms: Sri Award Info., Patient Portal Info Letter Discharge Order Discharge Orders: Discharge (Routine); Ordered 03/04/25 Ordered By: Fede Rocha Quality Discharge Quality Measures VTE prophylaxis Attestestation MD Attestation I have discussed and was present for the essential components of the discharge history, physical examination, diagnosis, and discharge treatment plan with the resident. I agree with the patient's discharge care as documented by the resident and amended herein by me. Shaun Lobo DO. The patient understood all discharge instructions, all questions were answered satisfactorily. The patient was instructed to return to the Emergency Department is symptoms worsened or persisted. Although this document has been carefully reviewed, there may still be some phonetic and other typographical errors. These errors are purely grammatical due to imperfections in the software program and should not be construed in any way to compromise the substance of the patient's medical care during this visit. Time Spent on discharge: 34 minutes
--- NOTE | 2025-03-04 16:15 | PC.SS ---
IT INFRASTRUCTURE ENGINEER conducted bedside contact with the patient conduct initial assessment and to discuss discharge planning.? Patient confirmed demographic information.? Patient resides alone at home.? Patient does not utilize any form of DME to assist with ambulation.? Patient does not utilize home oxygen.? Patient describes the ability to complete ADL?s independently.? Patient identified mother, Nely Radford ; as surrogate medical decision maker.? Per patient spouse has .? Spouse listed on face sheet.? Patient reports possessing caregiver, Tasneem; .? Patient?s PCP is [facility].? Patient utilizes [facility] for medication services.? Patient reports possessing SSI benefits.? Patient reports that discharge plan is to return home.? Patient stated that caregiver can provide transportation.? IT INFRASTRUCTURE ENGINEER obtained permission from the patient to contact patient?s caregiver to confirm discharge plan. No further discharge needs identified by the patient.? No further intervention required at this time, social services analyst will be available to address any further concerns.? Next of Kin: Nely Radford D/C Plan: Home
--- NOTE | 2025-03-04 16:17 | PC.SS ---
INFRASTRUCTURE SOFTWARE ENGINEER conducted phone contact with patient's caregiver, Tasneem . Caregiver confirmed that patient is aligned with [facility]. Patient's director of casework department is Rachelle Olmstead . Caregiver confirmed that patient's spouse has . Patient's parents, Jevon and Nely Radford; reside in [place]. Patient possesses contact with parents. Patient does receive IHSS. In addition, patient will be receiving 24 caregiver services to assist with ADL's and medication management. Patient is fully ambulatory. Caregiver confirmed discharge plan to have patient return home. trial court justice will provide transportation on behalf of the patient.
--- NOTE | 2025-03-04 21:23 | PD.RESPRO ---
Documentation for date of: 03/04/25 Subjective Subjective Interval history: Patient examined at bedside. Vital stable, electrolytes in normal limits. A1c 5.5, TG 121, cholesterol 135, LDL 72, HDL 39, TSH 1.53. Physical exam no new or residual neurodeficits noted. MRI was negative for acute infarcts. Showed scattered punctate foci with white matter changes. EEG results negative for seizure activity. Continue aspirin and atorvastatin. Exam Vital Signs Temp Pulse Resp BP Pulse Ox O2 Del Method O2 Flow Rate 97.9 F 76 13 132/108 H 97 Nasal Cannula 3 03/04/25 04:00 03/04/25 12:33 03/04/25 12:00 03/04/25 15:34 03/04/25 12:00 03/03/25 16:00 03/03/25 09:28 FiO2 50 03/03/25 09:19 Narrative Exam General: Middle age male, irritable, eager to leave. No acute distress HEENT: NCAT, No JVD noted. Mucosa moist. Pupils are equal and reactive to light bilaterally Cardiovascular: Normal S1 and S2. Regular rate and rhythm. Respiratory: Lungs are clear to auscultation bilaterally. No wheezing or crackles heard. Abdomen: Soft, nontender, not distended, normal bowel sounds. Skin: Warm to touch, dry, no rashes noted. Various tattoos Musculoskeletal: No gross injuries. Able to move all 4 extremities. No pitting edema Neuro: Alert and oriented x3. Cranial nerves: II through XII grossly intact. Speech and language: Normal with no dysarthria or dysphasia. Motor system: Tone and bulk: Normal: Strength: 5 out of 5 in all 4 extremities; No pronator drift noted. Deep tendon reflexes: 2+ bilaterally symmetrical. Plantar reflex: Downgoing bilaterally. Sensory system: Intact to all modalities of sensation bilaterally. Coordination: Intact to xgukjg-qldo-ptyhb and tppm-vrdy-pens test bilaterally. No ataxia, no dysmetria, or dysdiadochokinesia noted. No intention tremors noted. Gait: Not tested. No signs of meningeal irritation noted. Psych: Normal affect and mood Objective Labs 03/04/25 04:30 03/04/25 04:30 Labs: Laboratory Results - last 24 hr 03/04/25 04:30 WBC 10.1 RBC 5.09 Hgb 15.9 Hct 46.5 MCV 91 MCH 31.2 MCHC 34.2 RDW Std Deviation 41.8 Plt Count 231 D Neut % (Auto) 67 Lymph % (Auto) 23 [place] % (Auto) 8 Eos % (Auto) 1 Baso % (Auto) 1 Neut # (Auto) 6.8 Lymph # (Auto) 2.3 [place] # (Auto) 0.8 Eos # (Auto) 0.1 Baso # (Auto) 0.1 Immature Gran # (Auto) 0.03 H Absolute Nucleated RBC 0.00 Immature Gran % 0 Nucleated RBC % 0 Sodium 143 Potassium 5.1 D Chloride 104 Carbon Dioxide 26.1 Anion Gap 13 BUN 15 Creatinine 1.0 Estim Creat Clear Calc 97.2 eGFR > 60 BUN/Creatinine Ratio 15 Glucose 78 Calculated Osmolality 284 Calcium 8.7 Corrected Calcium 8.7 Phosphorus 3.0 Magnesium 2.0 Albumin 4.1 ABG Interpretation ABG results: 03/02/25 03/02/25 03/03/25 17:12 22:34 02:14 ABG pH 7.28 L 7.35 7.26 L ABG pCO2 57 H 45 D 54 H ABG pO2 418 H 162 H D 163 H ABG HCO3 27 H 25 24 ABG O2 Saturation 100 H 100 H 100 H ABG Base Excess -2 -1 -4 L Quality Measures Quality Measures VTE prophylaxis Assessment & Plan Assessment Current Active Medications: Generic Name Dose Route Start Last Admin Trade Name Freq PRN Reason Stop Dose Admin Aspirin 81 mg 03/03/25 09:45 03/03/25 10:39 Aspirin 81 Mg Chew PO 04/02/25 09:44 81 mg QDAY GARCIA Administration Atorvastatin Calcium 40 mg 03/03/25 21:00 Atorvastatin Calcium 20 Mg Tablet PO 04/02/25 20:59 HS GARCIA Enoxaparin Sodium 40 mg 03/03/25 21:00 Enoxaparin Sod Inj 40 Mg/0.4 Ml Syringe SC 03/17/25 20:59 QPM GARCIA Famotidine 20 mg 03/03/25 09:00 03/03/25 09:25 Famotidine Inj 10 Mg/Ml Vial 2 Ml IVP 04/02/25 08:59 20 mg Q12HR GARCIA Administration Ketoconazole 0 gm 03/03/25 14:45 03/03/25 15:51 Ketoconazole Cr 2% 15 Gm Tube TOP 11/21/25 14:44 15 gram BID GARCIA Administration Midazolam HCl 2 mg 03/03/25 16:58 Midazolam Inj 1 Mg/Ml Vial 2 Ml IVP 03/08/25 16:57 X1 PRN FOr MRI if agitated Ondansetron HCl 4 mg 03/02/25 21:03 Ondansetron Inj 2 Mg/Ml Inj 2 Ml IVP 04/01/25 21:02 Q6H PRN NAUSEA OR VOMITING Protocol Plan 59-year-old male with past medical history of primary hypertension, who was brought in by ambulance after being found unresponsive in his trailer. GCS 3. Neurology consulted for encephalopathy. #Acute encepholapthy-improved #Hypertensive emergency-resolved #HTN stroke vs hypertensive emergency. Patient states that he does not always take his anti hypertensive agents. As per ED documentation, patient was brought in by paramedics with a GCS of 3, teleneuro was consulted after stroke alert was called, and patient was intubated to protect airway. BP on admission was 218/114. Utox positive for THC. UA negative. A1c 5.5, TG 121, cholesterol 135, LDL 72, HDL 39, TSH 1.53. NIHSS score 24, CT head/CTA head neck negative. MRI was negative for acute infarcts. Showed scattered punctate foci with white matter changes. EEG did not show seizure like activity. -aspirin 81 mg daily -atorvastatin 40mg daily -neuro checks q4hr The patient's management plan was discussed with my attending physician Dr. Torres. Deisy Aguilar, PGY-2 Attending Provider Attestation/Addendum I virtually have seen the patient at the bedside and I agreed with resident's findings, assessment and plan of care. Presentation is likely from HTN urgency MRI was negative for acute infarcts. Showed scattered punctate foci with white matter changes. EEG did not show seizure like activity. continue with aspirin 81 mg and statin daily
== END 2025-03-04 15:40 | disposition home or self-care (01) | DRG 64 ==
LOC: SERX 18:19 → SERHOLD 21:11 → S2SX 21:49
PROVIDERS: Emergency Medicine; Student in an Organized Health Care Education/Training Program; Admitting Provider Internal Medicine; Emergency Provider Emergency Medicine; Visit Provider Student in an Organized Health Care Education/Training Program
DX: I63.9 Cerebral infarction, unspecified (principal); G93.41 Metabolic encephalopathy; J96.01 Acute respiratory failure with hypoxia; I16.1 Hypertensive emergency; J44.9 Chronic obstructive pulmonary disease, unspecified; I11.0 Hypertensive heart disease with heart failure; D72.829 Elevated white blood cell count, unspecified; I50.9 Heart failure, unspecified; E11.9 Type 2 diabetes mellitus without complications; F17.200 Nicotine dependence, unspecified, uncomplicated; L21.9 Seborrheic dermatitis, unspecified; Z79.82 Long term (current) use of aspirin; Z79.899 Other long term (current) drug therapy
CPT/HCPCS: 36415; 36600; 70450; 70496; 70498; 70544; 80053; 80061; 80069; 80307; 80320; 81001; 82140; 82375; 82550; 82803; 83036; 83735; 83880; 84443; 84484; 85025; 85610; 85730; 87081; 87205; 92526; 92610; 93005; 93306; 94002; 94003; 95816; 96361; 96365; 96374; 96375; 99291; 99292; A4314; A4649; J0360; J0612; J1650; J2250; J2251; J2404; J2704; J3010; J3475; J3490; J7030; J7999; Q9967; A9270; G0480

== ENCOUNTER 2025-04-06 12:31 | Emergency (ER) | payer MEDICARE, MEDICAID, SELFPAY ==
--- NOTE | 2025-04-06 12:39 | XR_ITS ---
EXAMINATION: CT head/brain wo con ORDERING PROVIDER: Vimal Olmstead NP HISTORY: AMS found outside mobile home TECHNIQUE: CT scanner was used in the volumetric, helical non-contrast acquisition of the head with 2-D and 3-D reformats created on a separate workstation and submitted for interpretation. Institutional dose reducing protocols were utilized. RADIATION DOSE: DLP 1140 mGy-cm COMPARISON: None. FINDINGS: BRAIN: No acute intracranial hemorrhage, mass effect, or midline shift. BENAVIDES-WHITE DIFFERENTIATION: Preserved. EXTRA-AXIAL SPACES: No abnormal collection. SULCI: Normal. VENTRICLES: Normal. BASAL CISTERNS: Normal. VESSELS: No hyperdense vessel sign. DURAL VENOUS SINUSES: Symmetric attenuation. POSTERIOR FOSSA: Normal. MASTOID AIR CELLS: Clear. PARANASAL SINUSES: Small left maxillary sinus mucus retention cyst. ORBITS: Normal. BONES: Normal. SCALP: Normal. IMPRESSION: No acute intracranial hemorrhage, mass effect, or midline shift. If further clinical concern, MRI is more sensitive and specific for acute intracranial pathology to include ischemic changes.
--- NOTE | 2025-04-06 12:39 | EKG_ITS ---
[facility] Test Date: 2025-04-06 Pat Name: FRAHAN FOSTER Department: Room: - Gender: Male Director Of Infection Control: : 1965 Requested By: Vimal Hair Order Number: [id number] Reading MD: Vimal Hair Measurements Intervals [place] Rate: 87 P: 55 [place]: 146 QRS: -57 QRSD: 102 T: 62 QT: 392 QTc: 473 Interpretive Statements SINUS RHYTHM LEFT ANTERIOR FASCICULAR BLOCK [QRS AXIS <= -45, QR IN I, RS IN II] No previous ECG available for comparison /store/S0/[id number].pdf
--- NOTE | 2025-04-06 12:39 | XR_ITS ---
EXAMINATION: AP chest single view TECHNIQUE: AP portable upright chest single view Date and time: April 06, 2025, 12:47 p.m., comparison March 02, 2025 INDICATIONS: Altered mental status today. FINDINGS: No significant cardiac enlargement Mild vascular congestion No aspiration pneumonia Moderate osteopenia IMPRESSION: Mild vascular congestion
--- NOTE | 2025-04-06 12:41 | EDNOTE_ITS ---
ED General RME/HPI General Chief complaint: Altered Mental Status Stated complaint: ALTERED MENTAL STATUS Time Seen by Provider: 04/06/25 12:35 Arrival date/time: 04/06/25 12:31 CC: Altered mental status HPI patient presents to the ER via EMS who report the patient was lying on the ground outside his mobile home. EMS and fire administered Narcan with no response. Patient remains obtunded, however upon arrival with sternal rubs patient is able to answer simple questions and follow commands. Patient denies street drugs alcohol he is maintaining his own airway. Currently the patient denies any pain however all questions to answers are prefaced with sternal rub to elicit responses. Review the medical record show that in February 2025 the patient was admitted and intubated for acute encephalopathy. Related Data Previous Rx's ?Medication ?Instructions ?Recorded aspirin 81 mg tablet 81 mg PO QDAY 1 month #30 ta bs 03/04/25 atorvastatin 40 mg tablet (Lipitor) 40 mg PO QDAY 1 mo nt #30 tabs 03/04/25 blood pressure monitor (Blood #1 ea 03/04/25 Pressure Kit) losartan 25 mg tablet 25 mg PO QDAY 1 month #30 ta bs 03/04/25 Allergies Allergy/AdvReac Type Severity Reaction Status Date / Time bee venom protein (honey bee) Allergy Severe Rash Verified 04/06/25 12:50 Review of Systems Review of Systems ROS Unobtainable: unobtainable due to mental status Past Medical History Past Medical History NEUROLOGIC: Negative Neurological Disorders or Dementia CARDIAC: Positive Cardiac Disorders, Congestive Heart Failure and Hypertension; Negative Myocardial Infarction or Cardiac Arrhythmia RESPIRATORY: Positive Chronic Obstructive Pulmonary Disease (COPD), Emphysema and CPAP Dependent GASTROINTESTINAL: Negative Gastrointestinal Disorders or Cirrhosis GENITOURINARY: Negative Genitourinary Disorders or Renal Disease MUSCULOSKELETAL: Negative Musculoskeletal Disorders or Muscular Dystrophy ENT: Negative Blind ENDOCRINE: Positive Endocrine Disorders and Diabetes Mellitus Type 2; Negative Diabetes Mellitus Type 1 HEMATOLOGIC: Negative Blood Disorders PSYCHO/SOCIAL: Positive Recreational Drug Use, Behavior Problems and Attention Deficit Hyperactivity Disorder Social History SMOKING STATUS: Current every day smoker SUBSTANCE USE: marijuana (QD) ED Exam Narrative Physical exam: [General: Obtunded Head normocephalic HEENT: Eyes pupils are PERRLA EOMs are intact tracking. Mouth pink dry membranes with crusting from both corners of the mouth. Phonation is normal. Nose no epistaxis rhinorrhea. Neck is supple nontender, no JVD. Chest equal chest rise nontender to palpation Respiratory: Clear to auscultation no wheezes crackles or rubs CV: Rate rhythm is regular no murmurs rubs or clicks Abdomen is soft nontender no masses positive bowel sounds all 4 quadrants Back: No CVA tenderness no spinous process tenderness from cervical spine thoracic and lumbar spine Skin: Intact no petechiae rash induration ulceration or crepitus Extremities: Moving all extremity against resistance cap refill less than 2 seconds neurosensory intact Neuro: Awake alert oriented x3 Glascow coma 15 no focal deficits] with constant prompting not with noxious stimuli. Course Course Course Narrative: At 1645, the patient's laboratory results show there is no street drugs, CT of the head is negative. The patient still somewhat somnolent but is much easily arousable. But has remained sleepy in the bed. Asked the patient if he want to go home he said it is up to you . At 1715, the patient was asked dizzy homicidal suicidal or hearing voices he denied all 3 of those without any prompting. At 1700, patient's traveling clerk came by and states the patient has been walking around with a rifle not necessarily threatening people but making comments to himself and also hearing voices. Patient has been sleeping most the day but the minutes of the care provider showed up and we attempted to pull the line out he became agitated not enough to be aggressive towards other people but shaking and making it difficult to do discharge summary. Patient is afebrile nontoxic with stable vital signs. Care provider also states that the patient is compliant during days, but has behavior as stated above during the nighttime. Plan is to discharge him with his care provider who will take him home, and if there is any outburst regarding hearing voices suicidal homicidal intention PD will be called and the patient will be placed on a 5150. Quality Measures none Orders Category Date Time Status EKG (ED ONLY) *Do not use* NOW Care 04/06/25 12:39 Completed Saline [Insert IV] NOW Care 04/06/25 12:[address] head/brain wo con Stat Exams 04/06/25 12:39 Completed EKG (ED Only) Stat Exams 04/06/25 12:39 Draft XR chest 1V Stat Exams 04/06/25 12:39 Completed Ammonia Stat Lab 04/06/25 13:03 Completed B-Type Natriuretic Peptide Stat Lab 04/06/25 13:03 Completed CBC Stat Lab 04/06/25 13:03 Completed Comprehensive Metabolic Panel Stat Lab 04/06/25 13:03 Completed Creatine Kinase Stat Lab 04/06/25 13:03 Completed Drug Screen,Urine Stat Lab 04/06/25 14:40 Completed LDH (Lactate Dehydrogenase) Stat Lab 04/06/25 13:03 Completed Magnesium Stat Lab 04/06/25 13:03 Completed Partial Thromboplastin Time Stat Lab 04/06/25 13:03 Completed Prothrombin Time with INR Stat Lab 04/06/25 13:03 Completed Troponin I Stat Lab 04/06/25 13:03 Completed Urinalysis, C/S if Indicated Stat Lab 04/06/25 14:40 Completed VBG [Venous Blood Gas] Stat Lab 04/06/25 13:03 Completed Ringers Lactated 1000 ml [Lactated Ringers] 1,000 ml Med 04/06/25 12:41 Discontinued IV 999 mls/hr Vital Signs Vital signs: Vital Signs Temperature 97.6 F 04/06/25 13:05 Pulse Rate 86 04/06/25 13:05 Respiratory Rate 17 04/06/25 13:05 Blood Pressure 168/98 H 04/06/25 13:05 Pulse Oximetry (%) 96 04/06/25 13:05 Oxygen Delivery Method Room Air 04/06/25 13:05 Discharge Plan Plan Patient Disposition: HOME (Self Care) Patient condition on transfer: Stable Prescriptions/Referrals Prescriptions/Med Rec: No Action atorvastatin [Lipitor] 40 mg tablet 40 mg PO QDAY 30 Days Qty: 30 3RF aspirin 81 mg tablet 81 mg PO QDAY 30 Days Qty: 30 3RF losartan 25 mg tablet 25 mg PO QDAY 30 Days Qty: 30 1RF (DME) blood pressure monitor [Blood Pressure Kit] Kit See Rx Instructions .Route Qty: 1 0RF Rx Instructions: As directed Referrals: Indio Bhardwaj PA-C [Primary Care Provider] - In 1 week Problem List Clinical Impression: Confusion Patient/Caregiver Discharge Instructions Education Materials: ED Confusion Print Language: Yemeni Stand Alone Forms: Sri Award Info., Patient Portal Info Letter PA/HEEL SPRAYER FIRST Supervising Physician PA/HEEL SPRAYER FIRST Supervising Physician: Vimal Olmstead ENP MDM Clinical Information Provided by: patient and EMS Medical Records reviewed [facility] and EMS Meds/Rx considered, not ordered None Labs/Rad/Tests considered, not ordered None EKG Interpretation EKG #1: EKG Interpretation: EKG performed at 1301 shows a ventricular rate of 87 SD interval 146 QRS of 102 QTc of 392 sinus rhythm. Labs Labs: interpreted by me Lab(s) Interpretation(s): CBC shows a mild leukocytosis of 15.6 no anemia thrombocytopenia VBG shows a pH of 7.45 pCO2 of 40 pO2 of 32 base excess of 4. CMP shows a potassium of 3.3 chloride of 110 BUN of 7 no transaminitis or T. bili elevation Magnesium is 1.4 Ammonia level is normal LDH is normal creatinine kinase is normal Troponin is and BNP are within acceptable limits. Imaging Imaging interpretation: interpreted by me Imaging Interpretation(s): Chest x-ray is read as mild vascular congestion. Medication Administration(s) Medication Administration History Discontinued Medications Lactated Ringer's (Lactated Ringers) 1,000 mls @ 999 mls/hr IV .Q1H1M ONE Stop: 04/06/25 13:41 Last Infusion: 04/06/25 14:53 Dose: Infused Documented By: Admin: 04/06/25 13:12 Dose: 999 mls/hr Documented By: CECE
[2025-04-06 12:43] VITALS: PULSE 86; RESP 20; O2SAT 96; BMI 27.8
[2025-04-06 13:05] VITALS: BP 168/98; PULSE 86; RESP 17; TEMP 36.4; O2SAT 96
[2025-04-06] MEDS: RINGERS LACTATED 1000 ML 1,000 ML 999 ML IV (13:12)
[2025-04-06 13:14] LABS: Base Excess, Venous 4 (-3-3); O2 Saturation, Venous 74 % (96-97); PCO2, Venous 40 mmHg (36-56); PO2, Venous 32 mmHg (15-58); pH, Venous 7.45 (7.33-7.66)
[2025-04-06 13:16] LABS: Basophils # (Auto) 0.1 Thou/mm3 (0.0-0.2); Basophils % (Auto) 1 % (0-2.5); Eosinophils # (Auto) 0.2 Thou/mm3 (0.0-0.5); Eosinophils % (Auto) 2 % (0-10); Hematocrit 44.4 % (41.0-53.0); Hemoglobin 15.3 g/dL (13.5-16.0); Immature Granulocytes Auto 0.06 Thou/mm3 (0.00-0.00); Lymphocytes # (Auto) 2.0 Thou/mm3 (1.0-4.8); Lymphocytes % (Auto) 13 % (10-50); Mean Corpuscular HGB Conc 34.5 g/dl (31.0-37.0); Mean Corpuscular Hemoglobin 32.0 pg (25.0-35.0); Mean Corpuscular Volume 93 fL (80-100); Monocytes # (Auto) 1.1 Thou/mm3 (0.0-0.8); Monocytes % (Auto) 7 % (0-12); Neutrophils # (Auto) 12.1 Thou/mm3 (1.8-7.7); Neutrophils % (Auto) 78 % (37-80); Nucleated Red Blood Cell # 0.00 Thou/mm3 (0.00-0.00); Nucleated Red Blood Cell % 0 /100 WBC (0); Platelet Count 381 Thou/mm3 (140-440); RDW Standard Deviation 46.5 fL (35.1-43.9); Red Blood Count 4.78 Miln/mm3 (4.50-5.90); White Blood Count 15.6 Thou/mm3 (3.8-10.6)
[2025-04-06 13:36] LABS: Alanine Aminotransferase 14 U/L (10-49); Albumin, Serum 4.3 gm/dL (3.5-5.0); Albumin/Globulin Ratio 2.0 (1.2-2.2); Alkaline Phosphatase 94 U/L (46-116); Ammonia 12 uMol/L (11-32); Anion Gap 8 (7-16); Aspartate Amino Transferase 16 U/L (0-34); B-Type Natriuretic Peptide 79 pg/mL (0-100); BUN/Creatinine Ratio 7 Ratio (12-20); Bilirubin,Total 0.4 mg/dL (0.3-1.2); Blood Urea Nitrogen 7 mg/dL (9-23); Calcium 9.1 mg/dL (8.3-10.6); Calcium (Corrected) 9.1 mg/dL (8.5-10.1); Carbon Dioxide 27.2 mMol/L (20.0-31.0); Chloride 110 mMol/L (98-107); Creatine Kinase 123 U/L (34-171); Creatinine (Component) 1.0 mg/dL (0.6-1.3); Estimated Creatinine Clearance 93.9 mL/min (>60); Globulin 2.2 gm/dL (2.3-3.5); Glucose 135 mg/dL (74-106); LDH (Lactate Dehydrogenase) 165 U/L (120-246); Magnesium 1.4 mg/dL (1.6-2.6); Osmolality,Calculated 288 (275-295); Potassium 3.3 mMol/L (3.4-5.1); Sodium 145 mMol/L (136-145); Total Protein 6.5 gm/dL (5.7-8.2); Troponin I < 0.020 ng/mL (0.0-0.045); eGFR > 60 See Note
[2025-04-06 14:55] LABS: Collection Type, Urine Clean Catch; Squamous Epithelial Cell,Urine 0 /hpf (0-5)
[2025-04-06 15:04] LABS: Bilirubin,Urine Negative (Negative); Blood,Urine Negative (Negative); Clarity,Urine Clear (Clear/Hazy); Color,Urine Lt-Yellow (Lt Yel-Yel); Culture Indicated,Urine Not Indicated; Glucose, Urine Negative (Negative); Ketones,Urine Negative (Negative); Leukocyte Esterase,Urine Negative (Negative); Nitrite,Urine Negative (Negative); PH,Urine 6.5 (5.0-7.0); Protein,Urine Negative (Neg - Trace); RBC,Urine 1 /hpf (0-3); Specific Gravity,Urine 1.010 (1.001-1.035); Urobilinogen,Urine Negative mg/dL (0.0-1.0); WBC,Urine < 1 /hpf (0-5)
--- NOTE | 2025-04-06 15:12 | PC.NURSE ---
Patient back from ct walked out to ambulance bay, patient redirected back into er room 18, patient requesting to leave, however, agrees to stay for now. Vimal LEMUS made aware and went to bedside to speak with patient.
[2025-04-06 15:14] LABS: Amphetamine/Methamp Scrn,U Negative (Negative); Barbiturate Screen,Urine Negative (Negative); Benzodiazepines Screen,Urine Negative (Negative); Benzoylecgonine Screen, Ur Negative (Negative); Fentanyl Screen,Urine Negative (Negative); Opiate Screen,Urine Negative (Negative); THC Screen,Urine Negative (Negative)
[2025-04-06 15:27] LABS: INR 1.0 (0.9-1.3); Partial Thromboplastin Time 29.2 Seconds (22.0-36.0); Prothrombin Time 10.4 Seconds (9.0-12.2)
[2025-04-06 16:57] VITALS: BP 165/97
--- NOTE | 2025-04-06 17:00 | PC.NURSE ---
Per Vimal ED TEACHER requesting ivl be pulled and attempt to get patient up to walk
--- NOTE | 2025-04-06 17:10 | PC.NURSE ---
Patient refusing to get up and walk. Patient not acting appropriately, patient kicking feet, not answering questions, rambling. Adama Celestin at bedside spoke with his supervisor quality control from [facility]. patient spoke with Kailyn Brown supervisor quality control, states patient not a safe discharge and wants patient to see administrator social welfare, none available. Per Vimal Olmstead [employer] TRAVEL COUNSELOR, patient acting appropriately with him, refusing to keep patient, wants patient d/c'd home. Charge nurse, Jacque made aware.
--- NOTE | 2025-04-06 18:26 | PC.NURSE ---
Per Vimal, states he has no reason to place patient on hold. Patient's care provider Adama attempting to take patient out o er to be evaluated by crisis, no social services specialist here at this time to evaluate patient, ok to d/c per Vimal.
== END 2025-04-06 18:31 | disposition home or self-care (01) ==
PROVIDERS: Registered Nurse General Practice; Emergency Provider Emergency Medicine; PCP Physician Assistant
DX: R41.0 Disorientation, unspecified (principal); I44.4 Left anterior fascicular block; R09.89 Other specified symptoms and signs involving the circulatory and respiratory systems; D72.829 Elevated white blood cell count, unspecified; I11.0 Hypertensive heart disease with heart failure; I50.9 Heart failure, unspecified; F17.210 Nicotine dependence, cigarettes, uncomplicated
CPT/HCPCS: 36415; 70450; 71045; 80053; 80307; 81001; 82140; 82550; 82803; 83615; 83735; 83880; 84484; 85025; 85610; 85730; 93005; 96360; 96361; 99284; J7120

== ENCOUNTER 2025-04-06 19:06 | Emergency (ER) | payer MEDICARE, MEDICAID, SELFPAY ==
[2025-04-06 19:08] VITALS: BP 153/88; PULSE 81; RESP 18; TEMP 37.1; O2SAT 97
--- NOTE | 2025-04-06 19:11 | EDNOTE_ITS ---
ED Psych RME/HPI General Stated Complaint: 5150 Time Seen by Provider: 04/06/25 19:09 Arrival date/time: 04/06/25 19:06 RME / HPI RME / HPI Narrative: Dr. Everett?s Main ED Evaluation: 59yo male presents to the ED on a 5150 hold for gravely disabled. Patient was just discharged from our facility after being evaluated by the case management team and safety plan was in place. Patient was noted to be aggressive after he was discharged and has been displaying bizarre behavior, therefore, he was placed on a hold. Related Data Previous Rx's ?Medication ?Instructions ?Recorded aspirin 81 mg tablet 81 mg PO QDAY 1 month #30 ta bs 03/04/25 atorvastatin 40 mg tablet (Lipitor) 40 mg PO QDAY 1 mo nt #30 tabs 03/04/25 blood pressure monitor (Blood #1 ea 03/04/25 Pressure Kit) losartan 25 mg tablet 25 mg PO QDAY 1 month #30 ta bs 03/04/25 Allergies Allergy/AdvReac Type Severity Reaction Status Date / Time bee venom protein (honey bee) Allergy Severe Rash Verified 04/06/25 12:50 Review of Systems Review of Systems Systems Reviewed: All systems reviewed, normal except as documented Past Medical History Past Medical History NEUROLOGIC: Negative Neurological Disorders or Dementia CARDIAC: Positive Cardiac Disorders, Congestive Heart Failure and Hypertension; Negative Myocardial Infarction or Cardiac Arrhythmia RESPIRATORY: Positive Chronic Obstructive Pulmonary Disease (COPD), Emphysema and CPAP Dependent GASTROINTESTINAL: Negative Gastrointestinal Disorders or Cirrhosis GENITOURINARY: Negative Genitourinary Disorders or Renal Disease MUSCULOSKELETAL: Negative Musculoskeletal Disorders or Muscular Dystrophy ENT: Negative Blind ENDOCRINE: Positive Endocrine Disorders and Diabetes Mellitus Type 2; Negative Diabetes Mellitus Type 1 HEMATOLOGIC: Negative Blood Disorders PSYCHO/SOCIAL: Positive Recreational Drug Use, Behavior Problems and Attention Deficit Hyperactivity Disorder Social History SMOKING STATUS: Current every day smoker SUBSTANCE USE: marijuana (QD) ED Exam Narrative Physical exam: Generally the patient is alert he is oriented to year as well as name and place but with poor hygiene, head is normocephalic atraumatic, eyes pupils equal round reactive to light, neck shows no nuchal rigidity, heart regular rate and rhythm, lungs clear to auscultation equal bilaterally, abdomen soft bowel sounds present nondistended lower abdominal tenderness without rebound. Extremities show no deformity without edema, neurologic exam shows the patient to have no focal motor deficit. No dysphagia. No facial asymmetry. He is alert and oriented x 3 with pressure type speech Course Quality Measures none Vital Signs Vital signs: Vital Signs Temperature 98.8 F 04/06/25 19:08 Pulse Rate 81 04/06/25 19:08 Respiratory Rate 18 04/06/25 19:08 Blood Pressure 153/88 H 04/06/25 19:08 Pulse Oximetry (%) 97 04/06/25 19:08 Oxygen Delivery Method Room Air 04/06/25 19:08 Psych MDM Narrative MDM Narrative:: Scribe Attestation: 04/06/25 - Nikki Hui am scribing for and in the presence of Dr. Everett. Patient was seen here earlier had a very complete workup consisting of blood work urine tox screen and head CT all of which were relatively unremarkable. Patient has been placed on a 5150 for being gravely disabled. He is medically clear for social and human services assistant consult in the morning. Patient data External records reviewed:: [facility] previous records (Per chart review, patient was seen here earlier today for confusion. Patient had a full work-up done earlier today and is medically clear.) Clinical information provided by:: law enforcement Social determinants that could affect healthcare access:: mental health Patient has the following chronic illnesses:: CHF, HTN, HLD, COPD How is presenting disease/condition affected by chronic disease/condition?: uneffected by Evaluation data The following diagnostics were reviewed and interpreted by me:: other (specify) (none) Lab and/or radiology exams considered but not ordered:: none Interpretation Summary: none Medications / Prescriptions Medications or Prescriptions considered but not ordered:: none Medication administrations:: see above, if any Consultations Consultation(s) initiated? (list below): No Diagnosis Psych Differential Diagnosis: other (See MDM) Most likely diagnosis given after review of the tests above:: see clinical impression below Admission Indicated Admission indicated?: not indicated Admission Request Was there a request for admission?: No Disposition Plan Disposition Plan: other (specify) (Signed out to the next oncoming provider at 0600.) Discharge Plan Prescriptions/Referrals Prescriptions/Med Rec: No Action atorvastatin [Lipitor] 40 mg tablet 40 mg PO QDAY 30 Days Qty: 30 3RF aspirin 81 mg tablet 81 mg PO QDAY 30 Days Qty: 30 3RF losartan 25 mg tablet 25 mg PO QDAY 30 Days Qty: 30 1RF (DME) blood pressure monitor [Blood Pressure Kit] Kit See Rx Instructions .Route Qty: 1 0RF Rx Instructions: As directed Problem List Clinical Impression: Psychosis Patient/Caregiver Discharge Instructions Additional Instructions: Patient is medically clear for social and human services assistant evaluation. Print Language: Nigerien
[2025-04-07] VITALS (8 sets, daily range): BP systolic 110–134; BP diastolic 64–93; PULSE 69–94; RESP 18–19; TEMP 36.2–36.9; O2SAT 91–98
--- NOTE | 2025-04-07 07:08 | EDNOTE_ITS ---
Emergency Room Addendum <Tere Chamorro - Last Filed: 04/07/25 09:57> Addendum Narrative: 0600: Care assumed from Dr. Everett, the previous shift emergency physician. Past medical, surgical, social and family history reviewed. Vitals and home medications reviewed. I will assume the care of the patient at this time, pending mental health evaluation. Please refer to the emergency department record for history and examination from initial visit.?The following addendum documentation note is intended to reflect any pending information, findings, or radiology results not included in the patient?s initial chart. 0900a: sheep farm worker has evaluated the patient and placed on a 5150 hold, at this time pending LPS facility placement. <Michell Acosta MD - Last Filed: 04/07/25 11:34> Addendum Narrative: 0600: Care assumed from Dr. Everett, the previous shift emergency physician. Past medical, surgical, social and family history reviewed. Vitals and home medi cations reviewed. I will assume the care of the patient at this time, pending mental health evaluation. Please refer to the emergency department record for history and examination from initial visit.?The following addendum documentation note is intended to reflect any pending information, findings, or radiology results not included in the patient?s initial chart. Patient is a 59-year-old male with medical history notable for hyperlipidemia, psychosis that is on a 5150 for grave disability. Patient evaluated overnight, medically cleared. 0900a: sheep farm worker has evaluated the patient and placed on a 5150 hold, at this time pending LPS facility placement. 11:30a patient accepted to [facility]. Patient is hemodynamically stable not in distress, requesting nicotine patch.
--- NOTE | 2025-04-07 08:02 | PC.NURSE ---
Pt refusing vital signs at this time
--- NOTE | 2025-04-07 09:38 | PC.CM ---
Alonzo Olmstead is a 59-year-old male on a hold by [employer]. Hold indicates: CT is religiously preoccupied, risky bx, ct carrying BB audra around neighborhood waving it at people. Ct experiencing AH-command type instructing him to hurt people. No specific person, tangential speech mood swings, crying/angry. DE IONIZER OPERATOR met with the patient. At the time of the contact, the patient?s caregiver Roselia Damon was at bedside. Caregiver is from [facility]. Caregiver reports that the patient receives 24hr services from the agency. DE IONIZER OPERATOR was able to speak to Stephanie Ch ([phone]), mill supervisor at [facility]. Buffing Wheel Presser reports that the patient has been having abnormal behaviors for the past 2 weeks; paranoid, hallucinating, talking to himself, exposing himself to staff and mood varies. Buffing Wheel Presser reports that the patient was at [facility] being assessed when he took off on them due to them attempting to place him on a hold. DE IONIZER OPERATOR explained to the patient the reason he was at the hospital and the 5150 hold process. Patient acknowledged the information that was provided to him and also acknowledged that he needed help. Patient meets 5150 criteria; hold will remain in place for psychiatric placement. Dr. Acosta made aware of recommendation and in agreement.
--- NOTE | 2025-04-07 09:44 | PC.SS ---
Addendum entered by Jolynn Felton 04/07/25 11:44: SS follow up note; SS was contacted by Shira from [facility]. Accepting DR. Johnson. Shira informed SS if Nurse to Nurse report could provided at 1300 at [phone], and Transportation set up for 1400. SS contacted [facility] and set up transportation for patient for 1400. SS made patient's nurse and Michell Fernando aware. Original Note: SS sent out packet to all [facility] facilities.
--- NOTE | 2025-04-07 10:53 | PC.NURSE ---
PT REQUESTING FOR CARE PROVIDER, MACHELLE, TO GET HIS KEYS FROM ED LOCKER.
--- NOTE | 2025-04-07 11:47 | PC.NURSE ---
Called pharmacy to bring nicotine patch to er not in our er pyxis.
[2025-04-07] MEDS: NICOTINE PATCH 7 MG/24 HR PATCH.TD24 TOP (12:03)
--- NOTE | 2025-04-07 13:40 | PC.SS ---
SS was contacted by Dwight from [facility] reporting they are currently unable to accept patient. The reason being is that a previous discharge arrangement did not follow through on their end for another patient, which has impacted their ability to accept patient at this time. SS contacted Ladonna at [facility] and cancelled transportation. SS updated charge nurse, Macie and updated Dr. Acosta as well as patient's nurse Nick. SS will continue to find LPS facilities for patient.
--- NOTE | 2025-04-07 14:38 | PC.NURSE ---
Patient walking around er with sitter and careprovider, agitated, attempted to redirect patient back to room, patient swung arm back, called security to redirect patient. Dr. Acosta made aware. Upon speaking with patient regarding giving po medication, to help him with his agitation and restlessness, patient began yelling, cussing stating no i wanna go home patient educated regarding 72hr hold, patient jumped towards this nurse, pushed security, scratched security and began kicking, code og called, dr. acosta came to bedside, initiating 4 point restraints at this time for staff and patient safety.
[2025-04-07] MEDS: LORazepam 2 MG/ML VIAL IM (14:46)
[2025-04-07] MEDS: HALOPERIDOL LACT INJ 5 MG/ML VIAL IM (14:46)
--- NOTE | 2025-04-07 15:14 | PC.SS ---
SS follow up note; SS followed up with the following Facilities: [facility]- [facility]- Unable to accept due to medical [facility]- In review [facility]- Denied for Medical [facility]- In review, requested for SS to call back [facility]-No contract with [facility]- Requested for SS to re-fax. SS re-faxed packet
--- NOTE | 2025-04-07 15:14 | PC.SS ---
Addendum entered by Jolynn Felton 04/07/25 16:42: SS follow up note; Perlita from SS was notified by Dr. Acosta that she spoke to [facility] intake and they informed her they are able to accept patient, however requested for Packet to be faxed to them again. SS Sent Requested packet to [facility]. Original Note: SS follow up note; SS followed up with the following Facilities: [facility]- At Capacity [facility]- Unable to accept due to medical [facility]- In review [facility]- Denied for Medical [facility]- In review, requested for SS to call back [place]-At Capacity [facility]-No contract with [facility]- Requested for SS to re-fax. SS re-faxed packet
--- NOTE | 2025-04-07 16:01 | EDNOTE_ITS ---
Emergency Room Addendum <Michell Acosta MD - Last Filed: 04/07/25 18:29> Addendum Narrative: I spoke with [facility] states that they declined the patient because his venous blood gas was in 70s. I explained to him that this would be an appropriate finding because this is a venous blood gas. The person I spoke to over the phone and said that they had already declined the patient because when they spoke to nursing staff earlier they could not answer why his venous blood gas was this way. A staff member I spoke to at this time with asking about BNP and other studies and I said that at this time they are not necessary because the patient is not clinically fluid overloaded has not been hypoxic and has never been in respiratory distress and had a normal venous blood gas. They stated that if we are interested in seeking placement there that we are to submit another packet. I updated charge nurse <Tere Chamorro - Last Filed: 04/07/25 17:50> Addendum Narrative: 1440p: Patient is agitated and becoming aggressive toward staff. A code kumar called over head and the patient was placed in 4-point restraints. Ordered Haldol, Benadryl, and Ativan. I spoke with [facility] states that they declined the patient because his venous blood gas was in 70s. I explained to him that this would be an appropriate finding because this is a venous blood gas. The person I spoke to over the phone and said that they had already declined the patient because when they spoke to nursing staff earlier they could not answer why his venous blood gas was this way. A staff member I spoke to at this time with asking about BNP and other studies and I said that at this time they are not necessary because the patient is not clinically fluid overloaded has not been hypoxic and has never been in respiratory distress and had a normal venous blood gas. They stated that if we are interested in seeking placement there that we are to submit another packet. I updated charge nurse 1800p: Care signed out to Dr. Willoughby pending [facility] facility placement.
--- NOTE | 2025-04-07 16:33 | PC.NURSE ---
Pt appears more calm and less restless/combative. Bilateral lower extremity restraints removed. Bilateral upper extremity restraints remain intact
--- NOTE | 2025-04-07 18:23 | PD.EDADDENDU ---
Emergency Room Addendum Addendum Narrative: I took over the care from previous shift physician at 6 PM on 04/07/2025. See previous notes for complete H & P and ED course. I reviewed all diagnostic test results. My interpretation of the EKG is My interpretation of the chest x-ray is My review of the CT report is Blood tests and urine tests Diagnoses include: Treatment here included Not yet done: I discussed the case with our hospitalist. About the presentation and exam and diagnostics and treatments here. And need of further care in the hospital. Will accept the patient. Not yet done: Based on my best medical judgment, made decision no further evaluation or treatment indicated at this time. Patient understands and agrees to the discharge instructions customized and printed, see below. Justo Willoughby MD
--- NOTE | 2025-04-07 18:25 | PC.NURSE ---
Pt right wrist restrain removed at 182 d/t reduced restlessness and agitation. Pt is resting quietly. Pt no longer in restraints
--- NOTE | 2025-04-07 18:50 | PC.NURSE ---
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 [phone].
--- NOTE | 2025-04-07 19:08 | PD.EDADDENDU ---
Emergency Room Addendum Addendum Narrative: I took over the care from previous shift physician, Dr. Acosta, at 18:00 on 04/07/25.? See previous notes for complete H & P and ED course.?? On 0 hold for being Gravely Disabled. Waiting for placement. At 6 AM on 04/08/2025, the care of the patient was transferred to Dr. Gilbert. During my watch, the patient remained stable. Justo Willoughby MD
--- NOTE | 2025-04-07 22:00 | PC.NURSE ---
Pt resting with eyes closed. Respirations are even and unlabored. No s/s of acute distress noted. 1:1 sitter at bedside. Plan of care ongoing.
--- NOTE | 2025-04-08 03:30 | PC.NURSE ---
Pt awake, alert/oriented x3. Pt out of bed to use restroom. Respirations are even and unlabored. No s/s of acute distress noted. Plan of care ongoing
[2025-04-08 03:40] VITALS: BP 151/92; PULSE 76; RESP 18; TEMP 36.6; O2SAT 98
[2025-04-08 06:00] VITALS: BP 136/91; PULSE 82; RESP 16; TEMP 36.7; O2SAT 94
--- NOTE | 2025-04-08 06:45 | PC.NURSE ---
Pt resting with eyes closed. Respirations are even and unlabored. No s/s of acute distress noted. Plan of care ongoing
--- NOTE | 2025-04-08 08:10 | PC.NURSE ---
Spoke with Kenya from [facility]. report given. Kenya will present pt case to their doctor and call back if they can take pt
[2025-04-08 08:32] VITALS: BP 117/67; PULSE 79; RESP 18; TEMP 36.7; O2SAT 95
--- NOTE | 2025-04-08 09:41 | PC.CC ---
ED Roller Bearing Inspector updated 5150 packet and sent out to all [facility] accepting facilities. Brick Paver received telephone call from Kenya from [facility]- Bedside Nurse Perlita spoke to intake. Acceptance was received from Kenya to [facility] accepting Dr. Rdz to [place] unit Nurse to Nurse [phone]
--- NOTE | 2025-04-08 09:49 | PC.NURSE ---
REPORT GIVEN TO MONICA AT [facility]. EMS HERE TO TAKE PT AT THIS TIME
--- NOTE | 2025-04-08 11:38 | PD.EDADDENDU ---
Emergency Room Addendum Addendum Narrative: 0600: Care assumed from Dr. Willoughby, the previous shift emergency physician. Past medical, surgical, social and family history reviewed. Vitals and home medications reviewed. I will assume the care of the patient at this time, pending LPS facility placement. Please refer to the emergency department record for history and examination from initial visit.?The following addendum documentation note is intended to reflect any pending information, findings, or radiology results not included in the patient?s initial chart. Patient has been accepted at [facility]. 0945a: EMS here to transfer the patient.
== END 2025-04-08 09:50 ==
PROVIDERS: Emergency Provider Family Medicine
DX: Z04.6 Encounter for general psychiatric examination, requested by authority (principal); F29 Unspecified psychosis not due to a substance or known physiological condition; Z78.1 Physical restraint status; Z75.1 Person awaiting admission to adequate facility elsewhere
CPT/HCPCS: 36600; 80053; 82803; 85025; 96127; 96372; 99285; J1200; J1630; J2060; A9270